=== PATIENT | male | born 1945 | race Caucasian/White ===

== ENCOUNTER 2020-08-18 07:16 | Outpatient (REF) | payer MEDICARE, SELFPAY ==
[2020-08-18 07:53] LABS: Basophils Percent Auto 0.5 % (0-2); Eosinophils Absolute Auto 0.5 X10*3/uL (0.0-0.4); Eosinophils Percent Auto 8.4 % (0-4); Hematocrit 38.4 % (42-52); Hemoglobin 12.8 g/dl (14.0-18.0); Imm Gran Abs Auto 0.04 X10*3/uL (0.00-0.03); Imm Gran Pct Auto 0.7 % (0.0-0.4); Lymphocytes Absolute Auto 1.9 X10*3/uL (1.2-4.9); Lymphocytes Percent Auto 31.9 % (20-40); Mean Corpuscular HGB Conc 33.3 g/dl (31.0-36.0); Mean Corpuscular Hemoglobin 29.9 pg (27.0-33.0); Mean Corpuscular Volume 89.7 fL (80-98); Mean Platelet Volume 10.2 fL (9.4-12.4); Monocytes Absolute Auto 0.4 X10*3/uL (0.1-1.2); Monocytes Percent Auto 6.1 % (2-11); Neutrophils Absolute Auto 3.2 X10*3/uL (2.0-8.3); Neutrophils Percent Auto 52.4 % (45-73); Platelet Count 246 X10*3/uL (160-400); Red Blood Count 4.28 X10*6/uL (4.60-5.80); Red Cell Distribution Width 12.7 % (11.0-16.0); White Blood Count 6.1 X10*3/uL (4.8-10.8)
[2020-08-18 07:54] LABS: MANUAL DIFF FLAG NO
[2020-08-18 08:49] LABS: Alanine Aminotransferase 18 U/L (0-40); Albumin Level 4.3 g/dL (3.5-5.0); Alkaline Phosphatase 84 U/L (39-117); Anion Gap 12 (12-20); Aspartate Amino Transferase 14 U/L (5-37); Bilirubin Total 0.7 mg/dL (0.0-1.0); Blood Urea Nitrogen 20 mg/dL (9-16); Calcium 8.9 mg/dL (8.4-10.2); Carbon Dioxide 28 mmol/L (22-29); Chloride 106 mmol/L (96-108); Cholesterol 129 mg/dL; Estimated Glomerular Filt Rate > 60; Glucose Fasting 133 mg/dL (60-99); HDL Cholesterol 40 mg/dL; LDL Cholesterol Calculated 73 mg/dl; Potassium 3.8 mmol/l (3.3-5.1); Sodium 142 mmol/L (135-145); Total Protein 6.9 g/dL (6.5-8.0); Triglycerides 84 mg/dL
[2020-08-18 08:56] LABS: Prostate Specific Antigen 5.75 ng/mL (<0.05-4.0)
[2020-08-18 08:58] LABS: Estimated Average Glucose 137 mg/dL; Hemoglobin A1C 151.6453 umol/L; Hemoglobin A1c % 6.4 %
[2020-08-18 09:11] LABS: Glucose Urine UA NEG (NEG); Leukocyte Esterase Urine NEG (NEG); Nitrite Urine NEG (NEG); PH 6.5 (5.0-8.0); Urine Blood NEG (NEG); Urine Ketones NEG (NEG); Urine Protein NEG (NEG-TRACE)
[2020-08-18 09:15] LABS: Color Urine YELLOW
[2020-08-18 09:16] LABS: Appearance Urine CLEAR
[2020-08-18 09:33] LABS: Creatinine Urine 114.06 mg/dL; Microalbum/Creatinine Ratio Ur 6.1 ug/mg cr
[2020-08-18 09:35] LABS: Reflex LDLD? No
== END 2020-08-18 07:17 | disposition home or self-care (01) ==
LOC: HO.LAB 07:16
PROVIDERS: Visit Provider Internal Medicine
DX: E78.00 Pure hypercholesterolemia, unspecified (principal); E11.9 Type 2 diabetes mellitus without complications; I10 Essential (primary) hypertension; N40.0 Benign prostatic hyperplasia without lower urinary tract symptoms; Z00.00 Encounter for general adult medical examination without abnormal findings
CPT/HCPCS: 36415; 80053; 80061; 81003; 82043; 83036; 84153; 85025

== ENCOUNTER 2021-02-17 10:20 | Outpatient (REF) | payer MEDICARE, SELFPAY ==
[2021-02-17 11:02] LABS: Estimated Average Glucose 151 mg/dL; Hemoglobin A1c % 6.9 %
[2021-02-17 11:15] LABS: Alanine Aminotransferase 18 U/L (0-40); Albumin Level 4.1 g/dL (3.5-5.0); Alkaline Phosphatase 91 U/L (39-117); Aspartate Amino Transferase 17 U/L (5-37); Bilirubin Direct 0.3 mg/dL (0.0-0.5); Bilirubin Total 0.9 mg/dL (0.0-1.0); Cholesterol 133 mg/dL; Glucose Fasting 130 mg/dL (60-99); HDL Cholesterol 38 mg/dL; LDL Cholesterol Calculated 77 mg/dl; Total Protein 6.9 g/dL (6.5-8.0); Triglycerides 93 mg/dL
[2021-02-17 11:30] LABS: Reflex LDLD? No
== END 2021-02-17 10:21 | disposition home or self-care (01) ==
LOC: HO.LNP 10:20
PROVIDERS: Visit Provider Internal Medicine
DX: E11.9 Type 2 diabetes mellitus without complications (principal); E78.00 Pure hypercholesterolemia, unspecified
CPT/HCPCS: 80061; 80076; 82947; 83036

== ENCOUNTER 2021-05-01 08:54 | Outpatient (REF) | payer MEDICARE, SELFPAY ==
--- NOTE | ~2021-05-01 | US_ITS ---
EXAMINATION: US RETROPERITONEAL COMPLETE (RENAL) CLINICAL INFORMATION: Complex renal cyst. COMPARISON: Renal ultrasound 04/29/2020 and 04/17/2019. TECHNIQUE: Real-time imaging of the kidneys and bladder. FINDINGS: RIGHT KIDNEY: 11.2 x 4.8 x 4.6 cm (SAG x AP x TRV). The kidney is normal in size, contour, and echogenicity. Renal cortical thickness is normal. No renal calculi or hydronephrosis. There is a cyst with septation lower pole measuring 3.8 x 2.4 x 2.4 cm. There are mildly dilated calyces. LEFT KIDNEY: 11.1 x 5.1 x 4.9 cm (SAG x AP x TRV). The kidney is normal in size, contour, and echogenicity. Renal cortical thickness is normal. No renal calculi or hydronephrosis. There is cyst with septation lower pole measuring 2.0 x 1.9 x 2.0 cm. A simple anechoic cyst seen in the midpole measuring 1.7 x 1.4 x 1.6 cm. BLADDER: Well distended and normal. Bilateral ureteral jets are demonstrated. Prevoid bladder volume is 286 mL. Postvoid bladder volume is 11.3 mL. There is a bladder diverticulum measuring 1.6 x 0.90 x 1.4 cm. ADDITIONAL FINDINGS: The prostate gland is enlarged with 38.1 mL volume. US/US retroperitoneal comp IMPRESSION: Bilateral renal complex cyst and a simple cyst midpole left kidney. No echogenic stones seen in either kidney. There is a mildly dilated left renal calyx. Tiny postvoid residual bladder volume. Small bladder diverticulum. Enlarged prostate with volume 38.1 mL.
== END 2021-05-01 08:55 | disposition home or self-care (01) ==
LOC: HO.HMGCX 08:54
PROVIDERS: PCP Internal Medicine; Visit Provider Internal Medicine
DX: N28.1 Cyst of kidney, acquired (principal)
CPT/HCPCS: 76770

== ENCOUNTER 2021-12-15 10:54 | Outpatient (REF) | payer MEDICARE, SELFPAY ==
[2021-12-15 10:57] LABS: MANUAL DIFF FLAG NO
[2021-12-15 11:20] LABS: Basophils Absolute Auto 0.1 X10*3/uL (0.0-0.2); Basophils Percent Auto 0.9 % (0-2); Eosinophils Absolute Auto 0.5 X10*3/uL (0.0-0.4); Eosinophils Percent Auto 7.9 % (0-4); Hematocrit 39.8 % (42.0-52.0); Imm Gran Abs Auto 0.02 X10*3/uL (0.00-0.03); Imm Gran Pct Auto 0.3 % (0.0-0.4); Lymphocytes Percent Auto 29.4 % (20-40); Mean Corpuscular HGB Conc 32.7 g/dl (31.0-36.0); Mean Corpuscular Volume 91.7 fL (80.0-98.0); Mean Platelet Volume 10.7 fL (9.4-12.4); Monocytes Absolute Auto 0.6 X10*3/uL (0.1-1.2); Monocytes Percent Auto 8.5 % (2-11); Neutrophils Absolute Auto 3.6 x10*3/uL (2.0-8.3); Platelet Count 276 X10*3/uL (160-400); Red Blood Count 4.34 X10*6/uL (4.60-5.80); Red Cell Distribution Width 12.9 % (11.0-16.0); White Blood Count 6.7 X10*3/uL (4.8-10.8)
[2021-12-15 11:38] LABS: Estimated Average Glucose 140 mg/dL; Hemoglobin A1c % 6.5 %
[2021-12-15 11:56] LABS: Alanine Aminotransferase 21 U/L (0-40); Albumin Level 4.1 g/dL (3.5-5.0); Alkaline Phosphatase 74 U/L (39-117); Anion Gap 13 (12-20); Aspartate Amino Transferase 20 U/L (5-37); Bilirubin Total 0.9 mg/dL (0.0-1.0); Blood Urea Nitrogen 22 mg/dL (9-16); Calcium 9.8 mg/dL (8.4-10.2); Carbon Dioxide 27 mmol/L (22-29); Chloride 106 mmol/L (96-108); Cholesterol 124 mg/dL; Estimated Glomerular Filt Rate 52; Glucose Fasting 121 mg/dL (60-99); HDL Cholesterol 36 mg/dL; LDL Cholesterol Calculated 69 mg/dl; Potassium 4.5 mmol/L (3.3-5.1); Sodium 141 mmol/L (135-145); Triglycerides 97 mg/dL
[2021-12-15 12:04] LABS: PSA,Total (Free>4and<10) 5.08 ng/mL (0.00-4.00)
[2021-12-15 12:23] LABS: Appearance Urine CLEAR; Color Urine YELLOW; Glucose Urine UA NEG (NEG); Leukocyte Esterase Urine NEG (NEG); Nitrite Urine NEG (NEG); Specific Gravity - Urine 1.015 (1.005-1.025); Urine Blood NEG (NEG); Urine Ketones NEG (NEG); Urine Protein NEG (NEG-TRACE)
[2021-12-15 12:33] LABS: Creatinine Urine 210.28 mg/dL; Microalbum/Creatinine Ratio Ur 5.2 ug/mg cr
[2021-12-16 11:27] LABS: Free Prostate Spec Ag 1.4 ng/mL; Percent Free Prostate Spec Ag 30 % (calc) (>25); Prostate Specific Ag Total 4.7 ng/mL (< OR = 4.0)
== END 2021-12-15 10:55 | disposition home or self-care (01) ==
LOC: HO.LNP 10:54
PROVIDERS: PCP Internal Medicine; Visit Provider Internal Medicine
DX: Z00.00 Encounter for general adult medical examination without abnormal findings (principal); Z12.5 Encounter for screening for malignant neoplasm of prostate; E11.9 Type 2 diabetes mellitus without complications; E78.00 Pure hypercholesterolemia, unspecified; N40.0 Benign prostatic hyperplasia without lower urinary tract symptoms; I10 Essential (primary) hypertension
CPT/HCPCS: 80053; 80061; 81003; 82043; 83036; 84153; 84154; 85025

== ENCOUNTER 2022-05-11 10:29 | Outpatient (REF) | payer MEDICARE, SELFPAY ==
--- NOTE | ~2022-05-11 | US_ITS ---
EXAMINATION: US RETROPERITONEAL LIMITED (RENAL ONLY) CLINICAL INFORMATION: Renal cysts. COMPARISON: Ultrasound kidneys and bladder 05/01/2021 and 04/29/2020. TECHNIQUE: Real-time imaging of the kidneys. FINDINGS: RIGHT KIDNEY: 11.7 x 5.11 x 4.4 cm (SAG x AP x TRV). The kidney is normal in size, contour, and echogenicity. Renal cortical thickness is normal. There is a 4.4 x 2.8 x 2.8 cm minimally complex cyst with single thin septation. This appears unchanged. No renal calculi or hydronephrosis. LEFT KIDNEY: 10.8 x 5.2 x 5.2 cm (SAG x AP x TRV). The kidney is normal in size, contour, and echogenicity. Renal cortical thickness is normal. There are 2 left renal cysts. There is a 3 x 2.5 x 2.9 cm minimally complex left lower pole cyst with single thin septation. There is a 1.8 x 1.6 x 2.2 cm left upper pole simple cyst. These appear unchanged. No renal calculi or hydronephrosis. US/US renal BI IMPRESSION: Bilateral renal cysts similar to previous exam.
== END 2022-05-11 10:30 | disposition home or self-care (01) ==
LOC: HO.HMGCX 10:29
PROVIDERS: PCP Internal Medicine; Visit Provider Internal Medicine
DX: N28.1 Cyst of kidney, acquired (principal)
CPT/HCPCS: 76775

== ENCOUNTER 2022-06-22 10:56 | Outpatient (REF) | payer MEDICARE, SELFPAY ==
[2022-06-22 12:30] LABS: Estimated Average Glucose 134 mg/dL; Hemoglobin A1C 150.0247 umol/L; Hemoglobin A1c % 6.3 %
[2022-06-22 12:50] LABS: Alanine Aminotransferase 16 U/L (0-40); Albumin Level 4.1 g/dL (3.5-5.0); Alkaline Phosphatase 78 U/L (39-117); Aspartate Amino Transferase 16 U/L (5-37); Bilirubin Direct 0.4 mg/dL (0.0-0.5); Bilirubin Total 0.8 mg/dL (0.0-1.0); Cholesterol 113 mg/dL; Glucose Fasting 107 mg/dL (60-99); HDL Cholesterol 35 mg/dL; LDL Cholesterol Calculated 64 mg/dl; Total Protein 6.7 g/dL (6.5-8.0); Triglycerides 70 mg/dL
[2022-06-22 13:46] LABS: Reflex LDLD? No
== END 2022-06-22 10:57 | disposition home or self-care (01) ==
LOC: HO.LNP 10:56
PROVIDERS: Visit Provider Internal Medicine
DX: E11.9 Type 2 diabetes mellitus without complications (principal); E78.00 Pure hypercholesterolemia, unspecified
CPT/HCPCS: 80061; 80076; 82947; 83036

== ENCOUNTER 2022-12-21 10:46 | Outpatient (REF) | payer MEDICARE, SELFPAY ==
[2022-12-21 10:52] LABS: MANUAL DIFF FLAG NO
[2022-12-21 11:07] LABS: Basophils Absolute Auto 0.1 X10*3/uL (0.0-0.2); Basophils Percent Auto 0.7 % (0-2); Eosinophils Absolute Auto 0.3 X10*3/uL (0.0-0.4); Eosinophils Percent Auto 4.3 % (0-4); Hematocrit 38.8 % (42.0-52.0); Hemoglobin 12.8 g/dl (14.0-18.0); Imm Gran Abs Auto 0.02 X10*3/uL (0.00-0.03); Imm Gran Pct Auto 0.3 % (0.0-0.4); Lymphocytes Absolute Auto 1.9 X10*3/uL (1.2-4.9); Lymphocytes Percent Auto 28.4 % (20-40); Mean Corpuscular Volume 91.1 fL (80.0-98.0); Mean Platelet Volume 10.7 fL (9.4-12.4); Monocytes Absolute Auto 0.5 X10*3/uL (0.1-1.2); Monocytes Percent Auto 7.3 % (2-11); Platelet Count 269 X10*3/uL (160-400); Red Blood Count 4.26 X10*6/uL (4.60-5.80); Red Cell Distribution Width 13.4 % (11.0-16.0); White Blood Count 6.8 X10*3/uL (4.8-10.8)
[2022-12-21 11:09] LABS: Appearance Urine Clear; Color Urine Yellow; Glucose Urine UA Negative (Negative); Leukocyte Esterase Urine Negative (Negative); Nitrite Urine Negative (Negative); Urine Blood Negative (Negative); Urine Ketones Negative (Negative); Urine Protein Trace mg/dL (Neg-Trace)
[2022-12-21 11:15] LABS: Bacteria Urine None Seen (None Seen); Hyaline Casts Urine 0-2 /LPF (0-2); RBC Urine 0-2 /HPF (0-2); Squamous Epithelial Cell Urine 0-2 /HPF (0-2); WBC Urine 0-5 /HPF (0-5)
[2022-12-21 11:20] LABS: Estimated Average Glucose 140 mg/dL; Hemoglobin A1c % 6.5 %
[2022-12-21 12:20] LABS: Alanine Aminotransferase 15 U/L (0-40); Albumin Level 4.2 g/dL (3.5-5.0); Alkaline Phosphatase 67 U/L (39-117); Anion Gap 10 (12-20); Aspartate Amino Transferase 13 U/L (5-37); Blood Urea Nitrogen 23 mg/dL (9-16); Calcium 9.3 mg/dL (8.4-10.2); Carbon Dioxide 27 mmol/L (22-29); Chloride 107 mmol/L (96-108); Cholesterol 118 mg/dL; Estimated Glomerular Filt Rate > 60; Glucose Fasting 123 mg/dL (60-99); HDL Cholesterol 36 mg/dL; LDL Cholesterol Calculated 65 mg/dl; Potassium 4.1 mmol/L (3.3-5.1); Sodium 140 mmol/L (135-145); Total Protein 6.6 g/dL (6.5-8.0); Triglycerides 86 mg/dL
[2022-12-21 12:38] LABS: PSA,Total (Free>4and<10) 4.52 ng/mL (0.00-4.00)
[2022-12-21 12:40] LABS: Creatinine Urine 207.44 mg/dL; Microalbum/Creatinine Ratio Ur 8.6 ug/mg cr
[2022-12-23 09:59] LABS: Free Prostate Spec Ag 1.2 ng/mL; Percent Free Prostate Spec Ag 29 % (calc) (>25); Prostate Specific Ag Total 4.2 ng/mL (< OR = 4.0)
== END 2022-12-21 10:47 | disposition home or self-care (01) ==
LOC: HO.LNP 10:46
PROVIDERS: Visit Provider Internal Medicine
DX: Z00.00 Encounter for general adult medical examination without abnormal findings (principal); Z12.5 Encounter for screening for malignant neoplasm of prostate; E11.9 Type 2 diabetes mellitus without complications; I10 Essential (primary) hypertension; N40.0 Benign prostatic hyperplasia without lower urinary tract symptoms; E78.00 Pure hypercholesterolemia, unspecified
CPT/HCPCS: 80053; 80061; 81001; 82043; 83036; 84153; 84154; 85025

== ENCOUNTER 2023-06-27 10:59 | Outpatient (REF) | payer MEDICARE, SELFPAY ==
[2023-06-27 11:40] LABS: Estimated Average Glucose 137 mg/dL; Hemoglobin A1c % 6.4 % (<6.0)
[2023-06-27 11:46] LABS: Alanine Aminotransferase 16 U/L (0-40); Albumin Level 4.2 g/dL (3.5-5.0); Alkaline Phosphatase 65 U/L (39-117); Aspartate Amino Transferase 17 U/L (5-37); Bilirubin Direct 0.3 mg/dL (0.0-0.5); Bilirubin Total 0.6 mg/dL (0.0-1.0); Glucose Fasting 146 mg/dL (60-99)
[2023-06-27 11:50] LABS: Cholesterol 116 mg/dL (<200); HDL Cholesterol 42 mg/dL (>40); LDL Cholesterol Calculated 61 mg/dL (<100); Triglycerides 67 mg/dL (<150)
[2023-06-27 12:10] LABS: Reflex LDLD? No
== END 2023-06-27 11:00 | disposition home or self-care (01) ==
LOC: HO.LNP 10:59
PROVIDERS: Visit Provider Internal Medicine
DX: E11.9 Type 2 diabetes mellitus without complications (principal); E78.00 Pure hypercholesterolemia, unspecified
CPT/HCPCS: 80061; 80076; 82947; 83036

== ENCOUNTER 2023-12-13 12:56 | Outpatient (REF) | payer MEDICARE, SELFPAY ==
--- NOTE | ~2023-12-13 | US_ITS ---
EXAMINATION: US RETROPERITONEAL LIMITED (RENAL ONLY) CLINICAL INFORMATION: Renal cysts. . COMPARISON: Renal ultrasound 05/11/2022. Ultrasound kidneys and bladder 05/01/2021. TECHNIQUE: Real-time imaging of the kidneys. FINDINGS: RIGHT KIDNEY: 10.8 x 5.0 x 5.0 cm (SAG x AP x TRV). The kidney is normal in size, contour, and echogenicity. Renal cortical thickness is normal. No renal calculi or hydronephrosis. Thinly septated cyst in the lower pole measures 5.4 cm. Simple cyst in the lower pole measures 2.3 cm. No imaging follow-up is recommended. LEFT KIDNEY: 10.5 x 4.9 x 5.5 cm (SAG x AP x TRV). The kidney is normal in size, contour, and echogenicity. Renal cortical thickness is normal. No renal calculi or hydronephrosis. Thinly septated cyst in the lower pole measures 3.2 cm. Simple cyst in the mid kidney measures 1.8 cm. No imaging follow-up is recommended. US/US renal BI IMPRESSION: Benign appearing mildly complex and simple cysts bilateral kidneys. No imaging follow-up is recommended.
== END 2023-12-13 12:57 | disposition home or self-care (01) ==
LOC: HO.HMGCX 12:56
PROVIDERS: PCP Internal Medicine; Visit Provider Internal Medicine
DX: N28.1 Cyst of kidney, acquired (principal)
CPT/HCPCS: 76775

== ENCOUNTER 2023-12-27 12:20 | Outpatient (REF) | payer MEDICARE, SELFPAY ==
[2023-12-27 12:36] LABS: MANUAL DIFF FLAG NO
[2023-12-27 12:46] LABS: Basophils Absolute Auto 0.1 X10*3/uL (0.0-0.2); Basophils Percent Auto 0.8 % (0-2); Eosinophils Absolute Auto 0.3 X10*3/uL (0.0-0.4); Eosinophils Percent Auto 4.3 % (0-4); Hematocrit 39.2 % (42.0-52.0); Hemoglobin 12.8 g/dl (14.0-18.0); Imm Gran Abs Auto 0.04 X10*3/uL (0.00-0.03); Imm Gran Pct Auto 0.5 % (0.0-0.4); Lymphocytes Absolute Auto 1.8 X10*3/uL (1.2-4.9); Lymphocytes Percent Auto 25.1 % (20-40); Mean Corpuscular HGB Conc 32.7 g/dl (31.0-36.0); Mean Corpuscular Hemoglobin 29.7 pg (27.0-33.0); Mean Platelet Volume 10.1 fL (9.4-12.4); Monocytes Absolute Auto 0.6 X10*3/uL (0.1-1.2); Monocytes Percent Auto 7.5 % (2-11); Neutrophils Absolute Auto 4.5 x10*3/uL (2.0-8.3); Neutrophils Percent Auto 61.8 % (45-73); Platelet Count 286 X10*3/uL (160-400); Red Blood Count 4.31 X10*6/uL (4.60-5.80); Red Cell Distribution Width 13.4 % (11.0-16.0); White Blood Count 7.3 X10*3/uL (4.8-10.8)
[2023-12-27 13:00] LABS: Estimated Average Glucose 143 mg/dL; Hemoglobin A1c % 6.6 % (<6.0)
[2023-12-27 13:14] LABS: Appearance Urine Clear; Color Urine Yellow; Glucose Urine UA Negative (Negative); Leukocyte Esterase Urine Negative (Negative); Nitrite Urine Negative (Negative); PH 7.5 (5.0-9.0); Specific Gravity - Urine 1.015 (1.005-1.025); Urine Blood Negative (Negative); Urine Ketones Negative (Negative); Urine Protein Negative (Neg-Trace)
[2023-12-27 13:19] LABS: Alanine Aminotransferase 14 U/L (0-40); Albumin Level 3.9 g/dL (3.5-5.0); Alkaline Phosphatase 64 U/L (39-117); Anion Gap 13 (12-20); Aspartate Amino Transferase 16 U/L (5-37); Bilirubin Total 0.7 mg/dL (0.0-1.0); Blood Urea Nitrogen 19 mg/dL (9-16); Calcium 9.5 mg/dL (8.4-10.2); Carbon Dioxide 28 mmol/L (22-29); Chloride 106 mmol/L (96-108); Cholesterol 114 mg/dL (<200); Estimated Glomerular Filt Rate > 60; Glucose Fasting 123 mg/dL (60-99); HDL Cholesterol 40 mg/dL (>40); LDL Cholesterol Calculated 61 mg/dL (<100); Potassium 4.4 mmol/L (3.3-5.1); Sodium 143 mmol/L (135-145); Total Protein 6.5 g/dL (6.5-8.0); Triglycerides 65 mg/dL (<150)
[2023-12-27 13:39] LABS: PSA,Total (Free>4and<10) 2.01 ng/mL (0.00-4.00)
[2023-12-27 14:19] LABS: Microalbum/Creatinine Ratio Ur 3.8 ug/mg cr (<30)
== END 2023-12-27 12:21 | disposition home or self-care (01) ==
LOC: HO.LNP 12:20
PROVIDERS: Visit Provider Internal Medicine
DX: Z00.00 Encounter for general adult medical examination without abnormal findings (principal); E11.9 Type 2 diabetes mellitus without complications; I10 Essential (primary) hypertension; N40.0 Benign prostatic hyperplasia without lower urinary tract symptoms; E78.00 Pure hypercholesterolemia, unspecified; Z12.5 Encounter for screening for malignant neoplasm of prostate
CPT/HCPCS: 80053; 80061; 81003; 82043; 82570; 83036; 84153; 85025

== ENCOUNTER → 2024-01-16 13:47 | Outpatient (REF) | payer MEDICARE, SELFPAY ==
--- NOTE | 2024-01-16 | HM_ITS ---
Conclusion: 1. Patient was monitored for total period of 6 days and 23 hours 2. Baseline was normal sinus rhythm with average heart of 74 beats per minute 3. No significant pauses noted 4. Rare PACs and PVCs noted 5. Seventeen total SVT events noted with fastest at 198 beats per minute and longest at 16 beats 6. No patient reported events MTDD
== END ==
LOC: HO.CARD 13:47
PROVIDERS: Visit Provider Internal Medicine
DX: R00.2 Palpitations (principal)
CPT/HCPCS: 93242; 93270

== ENCOUNTER → 2024-01-16 13:51 | Outpatient (BNV) | payer MEDICARE, SELFPAY | PROVIDERS: Visit Provider Internal Medicine Cardiovascular Disease | DX: I47.10 Supraventricular tachycardia, unspecified (principal) | CPT/HCPCS: 93244 ==

== ENCOUNTER 2024-05-31 10:43 | Outpatient (REF) | payer MEDICARE, SELFPAY ==
[2024-05-31 11:56] LABS: Estimated Average Glucose 140 mg/dL; Hemoglobin A1C 156.6499 umol/L; Hemoglobin A1c % 6.5 % (<6.0); Total Hemoglobin (HGBA1C) 3280.6473 umol/L
[2024-05-31 12:01] LABS: Alanine Aminotransferase 15 U/L (0-40); Alkaline Phosphatase 68 U/L (39-117); Aspartate Amino Transferase 16 U/L (5-37); Bilirubin Direct 0.3 mg/dL (0.0-0.5); Bilirubin Total 0.9 mg/dL (0.0-1.0); Cholesterol 112 mg/dL (<200); Glucose Fasting 112 mg/dL (60-99); HDL Cholesterol 42 mg/dL (>40); LDL Cholesterol Calculated 56 mg/dL (<100); Total Protein 6.8 g/dL (6.5-8.0); Triglycerides 72 mg/dL (<150)
[2024-05-31 12:08] LABS: Reflex LDLD? No
== END 2024-05-31 10:44 | disposition home or self-care (01) ==
LOC: HO.LNP 10:43
PROVIDERS: Visit Provider Internal Medicine
DX: E11.9 Type 2 diabetes mellitus without complications (principal); E78.00 Pure hypercholesterolemia, unspecified
CPT/HCPCS: 80061; 80076; 82947; 83036

== ENCOUNTER 2024-06-07 13:16 | Outpatient (REF) | payer MEDICARE, SELFPAY ==
[2024-06-07 14:04] LABS: TSH reflex Free T4 1.33 uIU/mL (0.32-4.0)
== END 2024-06-07 13:17 | disposition home or self-care (01) ==
LOC: HO.LNP 13:16
PROVIDERS: Visit Provider Internal Medicine
DX: R68.89 Other general symptoms and signs (principal)
CPT/HCPCS: 84443

== ENCOUNTER 2025-01-03 08:00 | Outpatient (REF) | payer MEDICARE, SELFPAY ==
[2025-01-03 11:40] LABS: MANUAL DIFF FLAG NO
[2025-01-03 11:47] LABS: Appearance Urine Clear; Basophils Absolute Auto 0.1 X10*3/uL (0.0-0.2); Basophils Percent Auto 0.8 % (0-2); Color Urine Yellow; Eosinophils Absolute Auto 0.2 X10*3/uL (0.0-0.4); Glucose Urine UA Negative (Negative); Hematocrit 36.6 % (42.0-52.0); Hemoglobin 12.4 g/dl (14.0-18.0); Imm Gran Abs Auto 0.02 X10*3/uL (0.00-0.03); Imm Gran Pct Auto 0.3 % (0.0-0.4); Leukocyte Esterase Urine Negative (Negative); Lymphocytes Absolute Auto 1.7 X10*3/uL (1.2-4.9); Lymphocytes Percent Auto 27.9 % (20-40); Mean Corpuscular HGB Conc 33.9 g/dl (31.0-36.0); Mean Corpuscular Hemoglobin 30.2 pg (27.0-33.0); Mean Corpuscular Volume 89.1 fL (80.0-98.0); Mean Platelet Volume 10.1 fL (9.4-12.4); Monocytes Absolute Auto 0.5 X10*3/uL (0.1-1.2); Monocytes Percent Auto 7.9 % (2-11); Neutrophils Absolute Auto 3.6 x10*3/uL (2.0-8.3); Neutrophils Percent Auto 60.1 % (45-73); Nitrite Urine Negative (Negative); Platelet Count 276 X10*3/uL (160-400); Red Blood Count 4.11 X10*6/uL (4.60-5.80); Red Cell Distribution Width 13.2 % (11.0-16.0); Specific Gravity - Urine 1.025 (1.005-1.025); Urine Blood Negative (Negative); Urine Ketones Trace mg/dL (Negative); Urine Protein Negative (Neg-Trace); White Blood Count 5.9 X10*3/uL (4.8-10.8)
[2025-01-03 11:50] LABS: Bacteria Urine None Seen (None Seen); Hyaline Casts Urine 0-2 /LPF (0-2); RBC Urine 0-2 /HPF (0-2); Squamous Epithelial Cell Urine 0-2 /HPF (0-2); WBC Urine 0-5 /HPF (0-5)
[2025-01-03 11:59] LABS: Estimated Average Glucose 143 mg/dL; Hemoglobin A1C 159.4641 umol/L; Hemoglobin A1c % 6.6 % (<6.0); Total Hemoglobin (HGBA1C) 3252.7563 umol/L
--- OUTSIDE RECORDS SUMMARY | 2025-01-03 12:12 | XMS_ITS | Patient Health Record ---
Author Organization John Dejesus MD Address [address] [place], [place] [id number] Care Team Providers Care Inspector Integrated Circuits Name Role Phone John Dejesus Primary Care Provider Allergies No Known Allergies Results Component Value Reference Range Notes Complete Blood Count Auto Di ff (Not yet reviewed by provider) Interpretation: Performing Lab:[facility], [address] [place] [phone] Notes/Report: White Blood Count 5.9 4.8-10.8 X10*3/uL [...] X10*3/uL NRBC Abs Auto 0.000 0.0-0.012 X10*3/uL Hemoglobin A1c (Not yet revi ewed by provider) Interpretation: Performing Lab:[address] [phone] Notes/Report: Hemoglobin A1c % 6.6 <6.0 % [...] average glucose, using the formula of the B4V-Uafgrow Average Glucose study (ADAG), Diabetes Care, Vol.31,#8, 2007 UA ClnCatch+Micro w/rflx Cul t (Not yet reviewed by provider) Interpretation: Performing Lab:[address] [phone] Notes/Report: Urine, Clean Catch Color Urine Yellow Appearance Urine Clear PH 6.0 5.0-9.0 Glucose Urine UA Negative Negative mg/dL Urine Blood Negative Negative Specific Jefferson - Urine 1.025 1.005-1.025 Urine Protein Negative Neg-Trace mg/dL Urine Ketones Trace Negative mg/dL Nitrite Urine Negative Negative Leukocyte Esterase Urine Negative Negative RBC Urine 0-2 0-2 /HPF WBC Urine 0-5 0-5 /HPF Squamous Epithelial Cell Urine 0-2 0-2 /HPF Bacteria Urine None Seen None Seen Hyaline Casts Urine 0-2 0-2 /LPF Occult Blood, Stool, Guaiac Reviewed date:01/05/2024 01:20:19 PM Interpretation:Negative Performing Lab: Notes/Report: Negative Occult Blood, Stool, Guaiac Neg Electrocardiogram (EKG) Reviewed date:01/05/2024 11:28:20 AM Interpretation: Performing Lab: Notes/Report: Glucose, finger stick Reviewed date:03/06/2024 10:03:19 AM Interpretation: Performing Lab: Notes/Report: Value 266 Liver Panel Reviewed date:05/31/2024 05:20:25 PM Interpretation: Performing Lab:[facility], [address] [place] [phone] Notes/Report: Bilirubin Total 0.9 0.0-1.0 mg/dL Bilirubin Direct 0.3 0.0-0.5 mg/dL Aspartate Amino Transferase 16 5-37 U/L Alanine Aminotransferase 15 0-40 U/L Total Protein 6.8 6.5-8.0 g/dL Albumin Level 4.0 3.5-5.0 g/dL Alkaline Phosphatase 68 39-117 U/L Glucose Fasting Reviewed date:05/31/2024 05:20:14 PM Interpretation: Performing Lab:[address] [phone] Notes/Report: Glucose Fasting 112 60-99 mg/dL A fasting glucose from 100-125 mg/dl is considered impaired (pre-diabetes). Lipid Panel with Reflex Reviewed date:05/31/2024 09:37:16 PM Interpretation: Performing Lab:[address] [phone] Notes/Report: Triglycerides 72 <150 mg/dL Desirable Triglyceride: [...] A1c Reviewed date:05/31/2024 09:21:34 PM Interpretation: Performing Lab:[facility], [address] [place] [phone] Notes/Report: Hemoglobin A1c % 6.5 <6.0 % [...] average glucose, using the formula of the L5A-Dzuyeyb Average Glucose study (ADAG), Diabetes Care, Vol.31,#8, Mar. 2007 TSH reflex Free T4 Reviewed date:06/07/2024 05:24:12 PM Interpretation: Performing Lab:[facility], [address] [place] [phone] Notes/Report: TSH reflex Free T4 1.33 0.32-4.0 uIU/mL Adrianna Sy Reviewed date:05/31/2024 05:17:39 PM Interpretation: Performing Lab:[facility], [address] [place] [phone] Notes/Report: Adrianna Sy See Note Specimen held untested for 24 hours; Call to request Chemistry testing. Adrianna Sy Reviewed date:06/07/2024 05:21:51 PM Interpretation: Performing Lab:[facility], [address] [place] [phone] Notes/Report: Adrianna Sy See Note Specimen held untested for 24 hours; Call to request Chemistry testing. Reason For Referral No Information Medications Medication SIG (Take, Route, Frequency, Duration) Notes Start Date End Date Status Atorvastatin Calcium 40 MG Take 1 tablet by mouth once daily for 90 Active Aspirin 81 MG 1 tablet Orally Once a day Active Valsartan-hydroCHLOROthia zide 320-12.5 MG Take 1 tablet by mouth once daily for 90 Active Transderm-Scop (1.5 MG) 1 MG/3DAYS 1 patch to skin as needed Transdermal every 3 days for 10 days 01/20/2017 Not-Taking metFORMIN HCl 1000 MG TAKE 1 TABLET BY M OUTH TWICE DAILY Active Metoprolol Succinate ER 100 MG Take 1 tablet by mouth once daily Active amLODIPine Besylate 10 MG Take 1 tablet by mouth once daily for 90 Active Tamsulosin HCl 0.4 MG TAKE 1 CAPSULE BY MOUTH TWICE DAILY 30 MINUTES AFTER THE SAME MEALS for 90 Active Immunizations Vaccine Route Administration Date Status Comme nts Shingles IM Intramuscular 06/01/2011 Administered Flu Vaccine IM Intramuscular 06/01/2011 Administered Flu Vaccine IM Intramuscular 05/29/2012 Administered PPSV23 (Pnemovax) Unknown 08/31/2012 Administered Flu Vaccine IM Intramuscular 06/12/2013 Administered Prevnar 13 IM Intramuscular 12/06/2013 Administered Flu Vaccine IM Intramuscular 06/04/2014 Administered zFluzone Quadrivalent IM Intramuscular 06/24/2015 Administered Fluarix Quadrivalent IM Intramuscular 05/04/2016 Administe red Fluarix Quadrivalent Unknown 06/10/2017 Administered [place] TDaP IM Intramuscular 08/29/2017 Administered pt was given the vaccine at [facility] in [place]. PPSV23 (Pnemovax) IM Intramuscular 02/09/2018 Administered Fluarix Quadrivalent IM Intramuscular 05/11/2018 Administe red Fluarix Quadrivalent IM Intramuscular 05/15/2019 Administe red Fluarix Quadrivalent IM Intramuscular 05/15/2020 Administe red Influenza High Dose IM Intramuscular 05/22/2021 Administer ed SARS-COV-2 Moderna Unknown 12/09/2020 Administered SARS-COV-2 Moderna Unknown 01/06/2021 Administered SARS-COV-2 Moderna Unknown 10/20/2021 Administered Influenza High Dose Unknown 05/22/2021 Administered Influenza High Dose IM Intramuscular 06/01/2022 Administer ed Influenza High Dose IM Intramuscular 05/12/2023 Administer ed Influenza High Dose IM Intramuscular 04/24/2024 Administer ed Social History Tobacco Use: Social History Observation [...] ast year? No Points 0 Interpretation Negative Problems Problem Type SNOMED Code ICD Code Onset Dates Problem Status W/U Status Risk Notes Problem 95106340 Prostatism (N40.0) Active confirmed Problem 434682553 Reflux esophagit is (K21.00) Active confirmed Problem Constipation (K59.00) Active confirmed Problem 6727386 Primary insomnia (F51.01) Active confirmed Problem 888954442 Gastroesophageal reflux disease without esophagitis (K21.9) Active confirmed Problem 02036671 Essential hypert ension (I10) Active confirmed Problem 19212733 Type 2 diabetes mellitus without complication (E11.9) Active confirmed Problem 669477315 Low HDL (under 4 0) (E78.6) Active confirmed Problem 729037029 Mild intermitten t asthma with acute exacerbation (J45.21) Active confirmed Problem 180503553 Cervical disc di sease (M50.90) Active confirmed Problem 81645378 Restless leg (G25.81) Active confirmed Problem 652079956 Angina pectoris (I20.9) Active confirmed Problem 25106100 Sciatica of left side (M54.32) Active confirmed Problem 235761532 Renal cysts, acq uired, bilateral (N28.1) Active confirmed Problem 36745260 Type 2 diabetes mellitus with mild nonproliferative diabetic retinopathy without macular edema, 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) Active confirmed Problem 209640128 Pure hypercholesterolemia (E78.00) Active confirmed Problem 2175491867431383 Arthritis of le ft hip (M16.12) Active confirmed Vital Signs Blood pressure diastolic 56 mm Hg 06/07/2024 Height 64 in 06/07/2024 Blood pressure systolic 122 mm Hg 06/07/2024 Weight 168 lbs 06/07/2024 BMI 28.83 kg/m2 06/07/2024 Encounters Encounter Location Date Provider Diagnosis John Dejesus MD [address] [place] [address] Drive [address] [place] [id number] 04/24/2024 John Dejesus Encounter for immuni zation Z23 John Dejesus MD [address] [id number] 01/03/2025 John Dejesus Blood tests for rout ine general physical examination Z00.00 ; Type 2 diabetes mellitus without complication E11.9 ; Prostatism N40.0 ; Essential hypertension I10 and Pure hypercholesterolemia E78.00 John Dejesus MD [address] [place] [id number] 01/05/2024 John Dejesus Type 2 diabetes iam itus without complication E11.9 ; Annual physical exam Z00.00 ; Palpitations R00.2 ; Guaiac positive stools R19.5 ; Essential hypertension I10 ; Prostatism N40.0 and Pure hypercholesterolemia E78.00 John Dejesus MD [address] [id number] 03/06/2024 John Dejesus Type 2 diabetes iam itus without complication E11.9 John Dejesus MD [address] [place] [id number] 05/31/2024 John Dejesus Type 2 diabetes iam itus without complication E11.9 and Pure hypercholesterolemia E78.00 John Dejesus MD [address] [id number] 06/07/2024 John Dejesus Sensation of feeling cold R68.89 ; Prostatism N40.0 ; Type 2 diabetes mellitus with mild nonproliferative diabetic retinopathy without macular edema, bilateral E11.3293 ; Angina pectoris I20.9 ; Pure hypercholesterolemia E78.00 and Essential hypertension I10 John Dejesus MD [address] [place] [id number] 01/16/2024 John Dejesus Heart palpitations R 00.2 Assessments Encounter Date Diagnosis (ICD Code) Assessment Notes Treatment Notes Treatment Clinical Notes Section Notes 04/24/2024 Encounter for immunization (ICD-10 - Z23) 01/03/[address] ine general physical examination (ICD-10 - Z00.00) 01/05/2024 Type 2 diabetes iam itus without complication (ICD-10 - E11.9) stable, will continue current regiment 01/05/2024 Annual physical exam (ICD-10 - Z00.00) labs reviewed and discussed with patient 03/06/2024 Type 2 diabetes iam itus without complication (ICD-10 - E11.9) went to [place] this weekend and ate a lot of sweets. will continue current regiment and will continue to monitor 05/31/2024 Type 2 diabetes iam itus without complication (ICD-10 - E11.9) 05/31/2024 Pure hypercholesterolemia (ICD-10 - E78.00) 06/07/2024 Sensation of feeling cold (ICD-10 - R68.89) 06/07/2024 Prostatism (ICD-10 - N40.0) need notes from urology this month, RECORD REQUESTED FROM UROLOGY 01/16/2024 Heart palpitations (ICD-10 - R00.2) 01/03/2025 Type 2 diabetes iam itus without complication (ICD-10 - E11.9) 01/05/2024 Palpitations (ICD-10 - R00.2) 06/07/2024 Type 2 diabetes iam itus with mild nonproliferative diabetic retinopathy without macular edema, bilateral (ICD-10 - E11.3293) well controlled with good a1c, will continue current regiment 01/03/2025 Prostatism (ICD-10 - N40.0) 01/05/2024 Guaiac positive stoo ls (ICD-10 - R19.5) will send with 3 cards and recheck 06/07/2024 Angina pectoris (ICD -10 - I20.9) well controlled 01/03/2025 Essential hypertensi on (ICD-10 - I10) 01/05/2024 Essential hypertensi on (ICD-10 - I10) stable, will continue current regiment 06/07/2024 Pure hypercholesterolemia (ICD-10 - E78.00) stable, at goal, will contiue current regiment 01/03/2025 Pure hypercholesterolemia (ICD-10 - E78.00) 01/05/2024 Prostatism (ICD-10 - N40.0) stabe, will continue current regiment 06/07/2024 Essential hypertensi on (ICD-10 - I10) stable, will continue current regiment 01/05/2024 Pure hypercholesterolemia (ICD-10 - E78.00) doing well, will continue current regiment Plan Of Treatment Pending Test Test Name Order Date Electrocardiogram (EKG) 08/17/2018 Electrocardiogram (EKG) 08/23/2019 Electrocardiogram (EKG) 07/15/2016 XR GI SERIES 08/02/2017 Diabetic Eye Exam 07/25/2015 Complete Blood Count Auto Diff 5 Comprehensive [place]. Panel Fast 5 Lipid Panel 01/03/2025 PSA,Total (Free>4and<10) 01/03/2025 Microalbumin, Random 01/03/2025 ECG holter monitor 48 hour 01/16/2024 ECG 30 day event monitor 01/05/2024 US renal BI 05/08/2021 US renal BI 04/17/2021 Hemoglobin A1c 01/03/2025 UA ClnCatch+Micro w/rflx Cult 01/03/2025 Future Test Test Name Order Date RENAL US WITH BLADDER 05/05/2021 US renal BI 12/27/2022 Next Appt Details Provider Name:John Cain ier, 01/10/2025 09:30:00 AM, [address] [place] [address], [address], [place], [place], [phone], Insurance Providers Payer Name Payer Address Payer Phone Subscriber Number Group Number Insured Name Patient Relationship to Insured Coverage Start Date Coverage End Date [employer] [address] [address] [place] [address] [id number] Bobby Chapman Self - patient is the insured Medical (General) History Medical History History ICD Code COLONOSCOPY [address] Avila's consult note in 04/2012; colonoscopy w/Dr. Avila 02/10/17 (no further testing needed per Dr. Avila)
--- OUTSIDE RECORDS SUMMARY | 2025-01-03 12:12 | XMS_ITS ---
Author Organization John Dejesus MD Address [address] [place] [id number] Care Team Providers Care Car Installations Supervisor Name Role Phone John Dejesus Primary Care Provider Allergies No Known Allergies Results Component Value Reference Range Notes TSH reflex Free T4 Reviewed date:06/07/2024 05:24:12 PM Interpretation: Performing Lab:[facility], [address] [place] [phone] Notes/Report: TSH reflex Free T4 1.33 0.32-4.0 [...] Location Date Provider Diagnosis John Dejesus MD [address] [place] [address] [address] [place], [place] [phone] 06/07/2024 John Dejesus Sensation of feeling cold [...] Notes Assessment Notes Prostatism need notes from [facility] l[facility] this month, RECORD REQUESTED FROM UROLOGY Type 2 diabetes mellitus 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, bilateral well controlled with good a1c, will continue current regiment Angina pectoris well controlled Pure hypercholesterolemia stable, at goa l, will contiue current regiment Essential hypertension stable, will cont inue current regiment Next Appt Details Provider Name:John Cain ier, 01/10/2025 09:30:00 AM, [address] [place] [address], [address], [place], [place], [phone], Progress Notes * MIHAELABobbyDOB:1945 (78 yo M)Acc No.[id number]:06/07/2024 Progress Notes Patient:?Jaziel Chapmandy Provider:?John Dejesus MD :1945???Age:78 Y???Sex:Male Kd e:06/07/2024 Address:[address] [place], [place] [phone] Subjective: * Chief Complaints: * ???3 month DM * HPI: ???Symptom(s):? patient is a 78 yo male her for 3 month follow up visit, complaining of feeling cold all the time./ frequent urination at night. psa was in the 4 range. * ROS:?General/Constitutional:?Denies?Chills.?Denies?Fatigue.?Denies?Fever.?Denies?Headache.?ENT:?Patient denies?decreased sense of smell , any loss of taste , sore throat.?Denies?Sore throat.?Respiratory:?Denies?Cough.?Denies?Shortness of breath at rest.?Denies?Shortness of breath with exertion.?Gastrointestinal:?Denies?Diarrhea.?Denies?Nausea.?Musculoskeletal:?Patient denies?muscle aches.?Peripheral Vascular:?Patient denies?red and blue toes.? * Medical History:? * Surgical History:? * Hospitalization/Major Diagno stic Procedure:? * Medications:?TakingAspirin 8 1 MG Tablet Delayed Release 1 tablet Orally [...] reviewed and reconciled with the patient * Allergies:?N.K.D.A.yes[Aller gies Verified] Objective: * Vitals:?Ht: 64, Wt: 168, BMI :28.83, BP:122/56, Wt-k.2. * ???Past Orders: ???Lab:Glucose Fasting (Orde r Date - 05/31/2024) (Collection Date - 05/31/2024) ? Value Reference Range ?Glucose Fasting 112 H 60-9 9 - mg/dL ???Lab:Lipid Panel with Refl ex (Order Date - 05/31/2024) (Collection Date - 05/31/2024) ? Value Reference Range ?Triglycerides 72 <150 - mg/dL ?Cholesterol 112 <200 - m g/dL ?LDL Cholesterol Calculated 56 <100 - mg/dL ?HDL Cholesterol 42 >40 - mg/dL ???Lab:Hemoglobin A1c (Order 05/31/2024) (Collection Date - 05/31/2024) ? Value Reference Range ?Hemoglobin A1c % 6.5 H <6. 0 - % ?Estimated Average Glucose 140 - mg/dL ???Lab:Liver Panel (Order Da 05/31/2024) (Collection Date - 05/31/2024) ? Value Reference Range ?Bilirubin Total 0.9 0.0- 1.0 - mg/dL ?Bilirubin Direct 0.3 0.0 -0.5 - mg/dL ?Aspartate Amino Transferase 16 5-37 - U/L ?Alanine Aminotransferase 15 0-40 - U/L ?Total Protein 6.8 6.5-8. 0 - g/dL ?Albumin Level 4.0 3.5-5. 0 - g/dL ?Alkaline Phosphatase 68 39-117 - U/L * Examination: ???General Examination: ?GENERAL APPEARANCE:?normal.?HEAD:?abnormal with a chemical burn on forehead from trying to remove a fiorella keratosis.?SKIN:?good turgor.?HEART:?no murmurs, rubs, gallops , regular rate and rhythm.?LUNGS:?no wheezes, rales, rhonchi , good air movement , clear to auscultation bilaterally.? Assessment: * Assessment: 1.?Sensation of feeling cold - R68.89 (Primary)?2.?Prostatism - N40.0?3.?Type 2 diabetes mellitus with mild nonproliferative diabetic retinopathy without macular edema, bilateral - E11.3293?4.?Angina pectoris - I20.9?5.?Pure hypercholesterolemia - E78.00?6.?Essential hypertension - I10? Plan: * Treatment: 2.?Prostatism? Continue Tamsulosin HCl Capsule, 0.4 MG, TAKE 1 CAPSULE BY MOUTH TWICE DAILY, 30 MINUTES AFTER THE SAME MEALS.?? Notes: need notes from urology this month, RECORD REQUESTED FROM UROLOGY?? 3.?Type 2 diabetes mellitus with mild nonproliferative diabetic retinopathy without macular edema, bilateral? Continue metFORMIN HCl Tablet, 1000 MG, TAKE 1 TABLET BY MOUTH TWICE DAILY.?? Notes: well controlled with good a1c, will continue current regiment?? 4.?Angina pectoris? Notes: well controlled?? 5.?Pure hypercholesterolemia ? Continue Atorvastatin Calcium Tablet, 40 MG, Take 1 tablet by mouth once daily.?? Notes: stable, at goal, will contiue current regiment?? 6.?Essential hypertension? Continue Valsartan-hydroCHLOROthiazide Tablet, 320-12.5 MG, Take 1 tablet by mouth once daily;?Continue amLODIPine Besylate Tablet, 10 MG, Take 1 tablet by mouth once daily;?Continue Metoprolol Succinate ER Tablet Extended Release 24 Hour, 100 MG, Take 1 tablet by mouth once daily.?? Notes: stable, will continue current regiment?? * Procedure Codes:?25897 VENIP UNCT, ROUTINE* * * Sign off status: Completed true * Provider:?John Dejesus MD Date:?1 Generated for Higinioi ng/Claire/eTransmitting on:?01/03/2025 12:12 PM EDT History and Physical Notes * HPI (History [...]
--- OUTSIDE RECORDS SUMMARY | 2025-01-03 12:12 | XMS_ITS ---
Author Organization John Dejesus MD Address [address] [place], [place] [phone] Care Team Providers Care Gas Collection System Operator Name Role Phone John Dejesus Primary Care Provider Results Component Value Reference Range Notes Liver Panel Reviewed date:05/31/2024 05:20:25 PM Interpretation: Performing Lab:[facility], [address] [place] [phone] Notes/Report: Bilirubin Total 0.9 0.0-1.0 mg/dL Bilirubin Direct 0.3 0.0-0.5 mg/dL Aspartate Amino Transferase 16 5-37 U/L Alanine Aminotransferase 15 0-40 U/L Total Protein 6.8 6.5-8.0 g/dL Albumin Level 4.0 3.5-5.0 g/dL Alkaline Phosphatase 68 39-117 U/L Glucose Fasting Reviewed date:05/31/2024 05:20:14 PM Interpretation: Performing Lab:[facility], [address] [place] [phone] Notes/Report: Glucose Fasting 112 60-99 mg/dL A fasting glucose from 100-125 mg/dl is considered impaired (pre-diabetes). Lipid Panel with Reflex Reviewed date:05/31/2024 09:37:16 PM Interpretation: Performing Lab:[facility], [address] [place] [phone] Notes/Report: Triglycerides 72 <150 mg/dL Desirable Triglyceride: [...] A1c Reviewed date:05/31/2024 09:21:34 PM Interpretation: Performing Lab:[facility], [address] [place] [phone] Notes/Report: Hemoglobin A1c % 6.5 <6.0 % [...] average glucose, using the formula of the F6H-Eggameh Average Glucose study (ADAG), Diabetes Care, Vol.31,#8, Mar. 2007 REASON FOR VISIT FASTING LIPIDS Encounters Encounter Location Date Provider Diagnosis John Dejesus MD [address] [place] [address] [address] [place], [place] [phone] 05/31/2024 John Dejesus Type 2 diabetes iam itus without complication E11.9 and Pure hypercholesterolemia E78.00 Assessments Encounter Date Diagnosis (ICD Code) Assessment Notes Treatment Notes Treatment Clinical Notes Section Notes 05/31/2024 Type 2 diabetes iam itus without complication (ICD-10 - E11.9) 05/31/2024 Pure hypercholesterolemia (ICD-10 - E78.00) Plan Of Treatment Next Appt Details Provider Name:John iyerr, 01/10/2025 09:30:00 AM, [address] [facility], [address], [place], [place], [phone], Progress Notes * Bobby CHAIREZDOB:1945 (78 yo M)Acc No.[id number]:05/31/2024 Progress Note Patient:?Bobby Chairez Provider:?John Dejesus MD :1945???Age:78 Y???Sex:Male Kd e:05/31/2024 Address:[address] [place], [place] [phone] Subjective: * Chief Complaints: * ???FASTING LIPIDS * Medical History:? * Surgical History:? * Hospitalization/Major Diagno stic Procedure:? * Medications:? Objective: Assessment: * Assessment: 1.?Type 2 diabetes mellitus without complication - E11.9 (Primary)?2.?Pure hypercholesterolemia - E78.00? Plan: * Treatment: 2.?Pure hypercholesterolemia ?LAB: Liver Panel ?LAB: Glucose Fasting ?LAB: Lipid Panel with Reflex ?LAB: Hemoglobin A1c * Procedure Codes:?36328 VENIP UNCT, ROUTINE* * * Sign off status: Completed true * Provider:?John Dejesus MD Date:?1 Generated for Higinioi ng/Facrescenciog/eTransmitting on:?01/03/2025 12:12 PM EDT
--- OUTSIDE RECORDS SUMMARY | 2025-01-03 12:12 | XMS_ITS | Clinical Summary ---
Author Organization [facility] ity Address [address] [place] [address] Care Team Providers Care Broadcast Engineer Name Role Phone Unavailable Primary Care Provider Unavailabl e Social History Tobacco Use Types Packs/Day Years Used Date Smoking Tobacco: Never Assessed Sex and Gender Information Value Date Recorded Sex Assigned at Not on file Legal Sex Male 8:42 AM EST Gender Identity Not on file Sexual Orientation Not on file Plan of Treatment Health Maintenance Due Date Last Done Comments DTaP,Tdap,and Td Vaccines (1 - Tdap) 1964 Pneumococcal Vaccine: 50+ Ye ars (1 of 1 - PCV) 10/28/1995 Zoster Vaccines (1 of 2) 10/28/1995 RSV Immunization Adult Patie nts (1 - 1-dose 75+ series) 2020 COVID-19 Vaccine ( - 2023-2 5 season) 2024 Influenza Vaccine (Season Ended) 2025 HIB Vaccines Aged Out No longer eligi ble based on patient's age to complete this topic HPV Vaccines Aged Out No longer eligi ble based on patient's age to complete this topic Hepatitis A Vaccines Aged Out No long er eligible based on patient's age to complete this topic Hepatitis B Vaccines Aged Out No long er eligible based on patient's age to complete this topic IPV Vaccines Aged Out No longer eligi ble based on patient's age to complete this topic MMR Vaccines Aged Out No longer eligi ble based on patient's age to complete this topic Meningococcal ACWY Vaccine Aged Out N o longer eligible based on patient's age to complete this topic Meningococcal B Vaccine Aged Out No l onger eligible based on patient's age to complete this topic RSV Immunization Patients Un benito 20 months Aged Out No longer eligible b ased on patient's age to complete this topic Varicella Vaccines Aged Out No longer eligible based on patient's age to complete this topic
--- OUTSIDE RECORDS SUMMARY | 2025-01-03 12:13 | XMS_ITS ---
Author Organization John Dejesus MD Address [address] [place], [place] [id number] Care Team Providers Care Cashier Name Role Phone John Dejesus Primary Care Provider Results Component Value Reference Range Notes Complete Blood Count Auto Di ff (Not yet reviewed by provider) Interpretation: Performing Lab:[facility], [address] [place] [phone] Notes/Report: White Blood Count 5.9 4.8-10.8 X10*3/uL [...] yet revi ewed by provider) Interpretation: Performing Lab:[address] [phone] Notes/Report: Hemoglobin A1c % 6.6 <6.0 % [...] average glucose, using the formula of the O1W-Cfxzkri Average Glucose study (ADAG), Diabetes Care, Vol.31,#8, 2007 UA ClnCatch+Micro w/rflx Cul t (Not yet reviewed by provider) Interpretation: Performing Lab:[address] [phone] Notes/Report: Urine, Clean Catch Color Urine Yellow Appearance Urine Clear PH 6.0 5.0-9.0 Glucose Urine UA Negative Negative mg/dL Urine Blood Negative Negative Specific [place] - Urine 1.025 1.005-1.025 Urine Protein Negative [...] Location Date Provider Diagnosis John Dejesus MD [address] [place] [address] Drive [address] [place], [place] [phone] 01/03/2025 John Dejesus Blood tests for rout [...] hypercholesterolemia (ICD-10 - E78.00) Plan Of Treatment Pending Test Test Name Order Date Complete Blood Count Auto Diff 5 Comprehensive [place]. Panel Fast 5 Lipid Panel 01/03/2025 PSA,Total (Free>4and<10) 01/03/2025 Microalbumin, Random 01/03/2025 Hemoglobin A1c 01/03/2025 UA ClnCatch+Micro w/rflx Cult 01/03/2025 Next Appt Details Provider Name:John Cain ier, 01/10/2025 09:30:00 AM, [address] [place] [address] Drive, [address], [place], [place], [phone], Progress Notes * Bobby CHAIREZDOB:1945 (79 yo M)Acc No.[id number]:01/03/2025 Progress Note Patient:?Bobby CHAIREZ Provider:?John Dejesus MD :1945???Age:79 Y???Sex:Male Kd e:01/03/2025 [facility] [id number] Subjective: * Chief Complaints: * ???1. FASTING LABS. * Medical History:? Objective: * Vitals:? Assessment: * Assessment: 1.?Blood tests for routine g eneral physical examination - Z00.00 (Primary)???2.?Type 2 diabetes mellitus without complication - E11.9???3.?Prostatism - N40.0???4.?Essential hypertension - I10???5.?Pure hypercholesterolemia - E78.00??? Plan: * Treatment: 2.?Type 2 diabetes mellitus without complication?LAB: Complete Blood Count Auto Diff (Collection Date & Time - 01/03/2025 08:00 AM) ?LAB: Comprehensive [place]. Panel Fast ?LAB: Lipid Panel ?LAB: PSA,Total (Free>4and<10) ?LAB: Microalbumin, Random ?LAB: Hemoglobin A1c (Collection Date & Time - 01/03/2025 08:00 AM) ?LAB: UA ClnCatch+Micro w/rflx Cult (Collection Date & Time - 01/03/2025 08:00 AM) 3.?Prostatism?LAB: Complete Blood Count Auto Diff (Collection Date & Time - 01/03/2025 08:00 AM) ?LAB: Comprehensive [place]. Panel Fast ?LAB: Lipid Panel ?LAB: PSA,Total (Free>4and<10) ?LAB: Microalbumin, Random ?LAB: Hemoglobin A1c (Collection Date & Time - 01/03/2025 08:00 AM) ?LAB: UA ClnCatch+Micro w/rflx Cult (Collection Date & Time - 01/03/2025 08:00 AM) 4.?Essential hypertension?LAB: Complete Blood Count Auto Diff (Collection Date & Time - 01/03/2025 08:00 AM) ?LAB: Comprehensive [place]. Panel Fast ?LAB: Lipid Panel ?LAB: PSA,Total (Free>4and<10) ?LAB: Microalbumin, Random ?LAB: Hemoglobin A1c (Collection Date & Time - 01/03/2025 08:00 AM) ?LAB: UA ClnCatch+Micro w/rflx Cult (Collection Date & Time - 01/03/2025 08:00 AM) 5.?Pure hypercholesterolemia ?LAB: Complete Blood Count Auto Diff (Collection Date & Time - 01/03/2025 08:00 AM) ?LAB: Comprehensive [place]. Panel Fast ?LAB: Lipid Panel ?LAB: PSA,Total (Free>4and<10) ?LAB: Microalbumin, Random ?LAB: Hemoglobin A1c (Collection Date & Time - 01/03/2025 08:00 AM) ?LAB: UA ClnCatch+Micro w/rflx Cult (Collection Date & Time - 01/03/2025 08:00 AM) * Procedure Codes:?69381 VENIP UNCT, ROUTINE* * * The named appointment provid er may or may not be the originator of this progress note, and it is not deemed complete until electronically signed by the appointment provider. Sign off status: Pending * Provider:?John Dejesus MD Date:?0 01/03/2025 Generated for Mandy conti/Claire/Radhaitting on:?01/03/2025 12:12 PM EDT
[2025-01-03 12:24] LABS: Creatinine Urine 207.18 mg/dL; Microalbum/Creatinine Ratio Ur 4.3 ug/mg cr (<30)
[2025-01-03 12:30] LABS: PSA,Total (Free>4and<10) 2.79 ng/mL (0.00-4.00)
[2025-01-03 12:49] LABS: Alanine Aminotransferase 13 U/L (0-40); Alkaline Phosphatase 65 U/L (39-117); Anion Gap 14 (12-20); Aspartate Amino Transferase 21 U/L (5-37); Bilirubin Total 0.5 mg/dL (0.0-1.0); Blood Urea Nitrogen 21 mg/dL (9-16); Calcium 9.2 mg/dL (8.4-10.2); Carbon Dioxide 23 mmol/L (22-29); Chloride 108 mmol/L (96-108); Cholesterol 126 mg/dL (<200); Estimated Glomerular Filt Rate > 60; Glucose Fasting 132 mg/dL (60-99); HDL Cholesterol 38 mg/dL (>40); LDL Cholesterol Calculated 73 mg/dL (<100); Potassium 3.7 mmol/L (3.3-5.1); Sodium 141 mmol/L (135-145); Total Protein 6.6 g/dL (6.5-8.0); Triglycerides 76 mg/dL (<150)
== END 2025-01-03 08:01 | disposition home or self-care (01) ==
LOC: HO.LNP 08:00
PROVIDERS: Visit Provider Internal Medicine
DX: Z00.00 Encounter for general adult medical examination without abnormal findings (principal); Z12.5 Encounter for screening for malignant neoplasm of prostate; E11.9 Type 2 diabetes mellitus without complications; N40.0 Benign prostatic hyperplasia without lower urinary tract symptoms; E78.00 Pure hypercholesterolemia, unspecified; I10 Essential (primary) hypertension
CPT/HCPCS: 80053; 80061; 81001; 82043; 82570; 83036; 84153; 85025

== ENCOUNTER 2025-03-04 12:16 | Outpatient (REF) | payer MEDICARE, SELFPAY ==
--- OUTSIDE RECORDS SUMMARY | 2025-01-10 05:30 | XMS_ITS ---
Author Organization John Dejesus MD Address [address] [place], [place] [id number] Care Team Providers Care Lozenge Maker Name Role Phone Oleg John Primary Care Provider Allergies No Known Allergies Reason For Referral [...] Problem Inflammation of joint of shoulder region (486104979) Shoulder arthritis (M19.019) Active confirmed Vital Signs Blood pressure systolic 138 mm Hg 01/11/20 25 Blood pressure diastolic 50 mm Hg 025 Height 64 in 01/10/2025 Weight 168 lbs 01/10/2025 BMI 28.83 kg/m2 01/10/2025 Encounters Encounter Location Date Provider Diagnosis John Dejesus MD [address] [place] [address] [place] [phone] 01/10/2025 John Dejesus Annual physical exam Z00.00 [...] Shoulder arthritis (ICD-10 - M19.019) [place] [facility] 01/10/2025 Type 2 diabetes iam itus [...] iscussed with patient Shoulder arthritis [place] [facility] Type 2 diabetes mellitus without [...] Med[place] Next Appt Details Provider Name:John chauhan, 06/27/2025 07:30:00 AM, [address] [place] [address], [place] [address], [place], [place], [phone], Provider Name:John chauhan, 07/04/2025 10:45:00 AM, [address], [address], [place], [place], [phone], Provider Name:John Cain gissel, 01/16/2026 07:00:00 AM, [address] [facility], [address], [place], [phone], Provider Name:John Cain gissel, 01/23/2026 09:30:00 AM, [address] [facility], [address], [place], [place], [phone], Progress Notes * MIHAELA BobbyDOB:1945 (79 yo M)Acc No.[id number]:01/10/2025 Progress Notes Patient: Bobby DEVINE Provider: Tim Dejesus MD :1945 A ge:79 Y S ex:Male Date:01/10/2025 Address:[address] [place], [place] [phone] Subjective: * Chief Complaints: * A NNUAL [...] * Family History: F ather: 75 yrs, [place]. M other: 86 yrs, alzheimer. 6 brother(s) , 6 sister(s) . . FATHER LA MOTHER ALZHEIMER'S , Denies mental health/substance abuse [...] 2. S houlder arthritis Notes: [place] [facility] Referral To:Vijay Medina Orthopedic Surgery Reason:Shoulder [...] MD Date: 0 01/10/2025 Generated for Mandy conti/Claire/[place] on: 0 03/04/2025 01:06 PM EDT History and Physical Notes * [...]
--- NOTE | ~2025-03-04 | XR_ITS ---
EXAMINATION: XR SHOULDER, LEFT CLINICAL INFORMATION: M25.519 - Pain in unspecified shoulder COMPARISON: 02/08/2017 TECHNIQUE: AP external rotation, Grashey, and axillary views of the left shoulder. FINDINGS: Normal bone mineralization. No fracture, dislocation, or suspicious bone lesion. Normal alignment. The glenohumeral joint demonstrates mild degenerative arthritis. The AC joint demonstrates mild superior and undersurface spurring. There is a type II acromion. No undersurface spurring. There is significant narrowing of the subacromial space, suggesting underlying rotator cuff tearing. Remainder of the soft tissue and bony structures appear normal. XR/XR shoulder LT min 2V IMPRESSION: 1. Mild degenerative arthritis in the glenohumeral joint and AC joint. 2. Significant narrowing of the subacromial space suggesting underlying rotator cuff tear. Electronically signed by: Mikhail Streeter MD 03/04/2025 02:31 PM EDT
--- OUTSIDE RECORDS SUMMARY | 2025-03-04 13:06 | XMS_ITS | Patient Health Record ---
Author Organization [facility] Address [address] [place] [address] Care Team Providers Care Reservoir Engineering Advisor Name Role Phone Oleg CHAPARRO, John Primary Care Provider Sushant Prince Unavailable [phone] Reason For Referral No Information Medications Medication SIG (Take, Route, Frequency, Duration) Notes Start Date End Date Status metFORMIN HCl 500 MG 1 tablet with meals Orally Once a day Active Atorvastatin Calcium 40 MG 1 tablet Oral ly Once a day Active Aspirin 325mg 1 tablet Orally Once a day Active Diovan 80 MG 1 tablet Orally Once a day Active Metoprolol Succinate ER 100 MG 1 tablet Orally Once a day Active Problems Problem Type SNOMED Code ICD Code Onset Dates Problem Status W/U Status Risk Notes Problem 684342179 Encounter for screening for malignant neoplasm of colon (Z12.11) Active confirmed Problem Screening for malignant neoplasm of rectum (760256405) Encounter for screening for malignant neoplasm of rectum (Z12.12) Active confirmed Problem [id number] Long-term use of aspirin therapy (Z79.82) Active confirmed Plan Of Treatment Future Test Test Name Order Date COLONOSCOPY 11/10/2016 Insurance Providers Payer Name Payer Address Payer Phone Subscriber Number Group Number Insured Name Patient Relationship to Insured Coverage Start Date Coverage End Date [employer] MEDI COMP (REFERRAL REQUIRED) [address] [address] [place] [address] [phone] [id number] LORRIE CHAIREZ Self - patient is the insured [employer] [address] [place] [address] [id number] LORRIE CHAIREZ Self - patient is the insured Medical (General) History Medical History History ICD Code Hyperlipidemia HTN NIDDM Denies PA,CVA,Lung disease,renal disease Negative colonoscopies in and 2006, except for diverticulosis and internal hemorrhoids Negative ETT in 08/2016 at [facility] [place]
--- OUTSIDE RECORDS SUMMARY | 2025-03-04 13:06 | XMS_ITS | Clinical Summary ---
Author Organization [facility] Address [address] [place] [address] Care Team Providers Care Workday Senior Associate Name Role Phone Unavailable Primary Care Provider [...] Vaccine ( - 2023-2 5 season) 2024 Depression Screening 08/15/2024 Influenza Vaccine (#1) 2025 HIB Vaccines Aged Out No longer [...]
== END 2025-03-04 12:17 | disposition home or self-care (01) ==
LOC: HO.HOSX 12:16
PROVIDERS: Visit Provider Orthopaedic Surgery
DX: M12.812 Other specific arthropathies, not elsewhere classified, left shoulder (principal); M25.512 Pain in left shoulder
CPT/HCPCS: 20610; 73030; 99202; J0665; J1100; J2003

== ENCOUNTER 2025-03-04 13:45 | Outpatient (AMB) | payer MEDICARE, SELFPAY ==
--- NOTE | 2025-03-04 13:55 | A.OFFVIS_ITS ---
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 Patient reports pain has been going on for 1 month, while he was golfing he felt a pull in his tricep. Later he felt onset of pain in his shoulder that radiates down to the medial aspect of the elbow, he felt a pull in the tricep area. A second injury happened about a year ago, when he slipped and fell on ice while holding on to the doorhandle of car with left arm. A snapping is felt in the shoulder with ROM. Currently, pain is only felt with reaching or lifting motions. Denies numbness or tingling. Hx of cortisone injection that was helpful. Allergies N.K.D.A. 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 He was golfing about a month ago and he hit the ground when it his clubs and felt immediate left shoulder pain. 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 He states it is not unbea rable but he would like to improve. [facility] Surgical History (Updated 03/04/25 @ 14:07 by SMA Nhan) History of total left hip replacement Physical Exam Vital Signs: BMI result Body Mass Index 28.8 Extrem Other: On exam he has a 4-/5 empty can compared to the right and full passive range of motion. He can get his hand to the back of his head with pain. Office Procedures Joint Inj/Aspir; Non-Pain Clin Joint Injection/Drain Details: Injected 1 mL of Decadron and 3 mL 1% lidocaine and 3 mL of 0.25% Marcaine. Site was prepped using aseptic technique. Patient tolerated the procedure well. Shoulders, Hips, Knees, Shoulder Injection Large joint : Left Shoulder Coding Procedure code (CPT) selection complete Results Reviewed Results Reviewed: I personally reviewed the MR images. 1. Mild degenerative arthritis in the glenohumeral joint and AC joint. 2. Significant narrowing of the subacromial space suggesting underlying rotator cuff tear. Assessment & Plan Assessment & Plan (1) Rotator cuff arthropathy of left shoulder: Code(s): M12.812 - Other specific arthropathies, not elsewhere classified, left shoulder Category: Medical Plan: This is a 79-year-old with rotator cuff arthropathy of the left shoulder. It is possible that he has better rotator cuff function than currently appears but it has only been a month since he injured his shoulder. Discussed this with him and we decided to perform a left shoulder injection. This was done without difficulty. If she continues to have pain over the next several months he will contact me and we consider physical therapy. He has pain has not been present for a sufficient amount of time, in my opinion, to warrant surgery. Orders: Orders XR shoulder LT min 2V Today M25.519 - Pain in unspecified shoulder Coding Level of Care Code New Pt Level 3 (16443) Diagnoses Rotator cuff arthropathy of left shoulder M12.812 CPT Codes Shoulders, Hips, Knees, - Shoulder Injection Large joint : Left Shoulder ([id number])
[2025-03-04 13:59] VITALS: BMI 28.8
== END 2025-03-04 15:01 | disposition home or self-care (01) ==
LOC: HO.HOS 13:46
PROVIDERS: Visit Provider Orthopaedic Surgery
DX: M12.812 Other specific arthropathies, not elsewhere classified, left shoulder (principal)
CPT/HCPCS: 20610; 99203

== ENCOUNTER → 2025-03-04 13:47 | Outpatient (BNV) | payer MEDICARE, SELFPAY | PROVIDERS: Visit Provider Radiology Diagnostic Radiology | DX: M25.512 Pain in left shoulder (principal) | CPT/HCPCS: 73030 ==

== ENCOUNTER 2025-06-27 10:46 | Outpatient (REF) | payer MEDICARE, SELFPAY ==
--- OUTSIDE RECORDS SUMMARY | 2024-01-05 06:00 | XMS_ITS ---
Author Organization John Dejesus MD Address [address] [place] [id number] Care Team Providers Care Director Of Community Life Name Role Phone John Dejesus Primary Care Provider [phone] Allergies No Known Allergies Results Component Value Reference Range Notes Occult Blood, Stool, Guaiac Reviewed date:01/05/2024 01:20:19 PM Interpretation:Negative Performing Lab: Notes/Report: Negative Occult Blood, Stool, Guaiac Neg Electrocardiogram (EKG) Reviewed date:01/05/2024 11:28:20 AM Interpretation: Performing Lab: Notes/Report: REASON FOR VISIT annual visit, No Covid symptoms, c/o bilateral leg edema Medications Medication SIG (Take, Route, Frequency, Duration) Notes Start Date End Date Status Transderm-Scop (1.5 MG) 1 MG/3DAYS 1 patch to skin as needed Transdermal every 3 days for 10 days 01/20/2017 Not-Taking Atorvastatin Calcium 40 MG Take 1 tablet by mouth once daily for 90 Active metFORMIN HCl 1000 MG TAKE 1 TABLET BY M OUTH TWICE DAILY Active Tamsulosin HCl 0.4 MG TAKE 1 CAPSULE BY MOUTH TWICE DAILY, 30 MINUTES AFTER THE SAME MEALS Active amLODIPine Besylate 10 MG Take 1 tablet by mouth once daily Active Aspirin 81 MG 1 tablet Orally Once a day Active Valsartan-hydroCHLOROthia zide 320-12.5 MG Take 1 tablet by mouth once daily Active Metoprolol Succinate ER 100 MG Take 1 tablet by mouth once daily Active Social History Tobacco Use: Social History Observation Description Date Details (start date - stop date) Former Smoker NA - NA Tobacco Use/Smoking Question Answer Notes Patient is a former smoker How long has it been since y ou last smoked? > 10 years Additional Findings: Tobacco Non-User Fo rmer smoker, currently using no form of tobacco Alcohol Screen Question Answer Notes Did you have a drink containing alcohol in the p ast year? No Points 0 Interpretation Negative Vital Signs Blood pressure systolic 132 mm Hg 01/05/20 24 Blood pressure diastolic 60 mm Hg 024 Height 64 in 01/05/2024 Weight 167 lbs 01/05/2024 BMI 28.66 kg/m2 01/05/2024 Encounters Encounter Location Date Provider Diagnosis John Dejesus MD [address] [place] [address] [address] [place], [place] [id number] 01/05/2024 John Dejesus Type 2 diabetes iam itus without complication E11.9 ; Annual physical exam Z00.00 ; Palpitations R00.2 ; Guaiac positive stools R19.5 ; Essential hypertension I10 ; Prostatism N40.0 and Pure hypercholesterolemia E78.00 Assessments Encounter Date Diagnosis (ICD Code) Assessment Notes Treatment Notes Treatment Clinical Notes Section Notes 01/05/2024 Type 2 diabetes iam itus without complication (ICD-10 - E11.9) stable, will continue current regiment 01/05/2024 Annual physical exam (ICD-10 - Z00.00) labs reviewed and discussed with patient 01/05/2024 Palpitations (ICD-10 - R00.2) 01/05/2024 Guaiac positive stoo ls (ICD-10 - R19.5) will send with 3 cards and recheck 01/05/2024 Essential hypertensi on (ICD-10 - I10) stable, will continue current regiment 01/05/2024 Prostatism (ICD-10 - N40.0) stabe, will continue current regiment 01/05/2024 Pure hypercholesterolemia (ICD-10 - E78.00) doing well, will continue current regiment Plan Of Treatment Medication Medication Name Sig Start Date Stop Date Notes metFORMIN HCl 1000 MG TAKE 1 TABLET BY M OUTH TWICE DAILY Tamsulosin HCl 0.4 MG TAKE 1 CAPSULE BY MOUTH TWICE DAILY, 30 MINUTES AFTER THE SAME MEALS amLODIPine Besylate 10 MG Take 1 tablet by mouth once daily Valsartan-hydroCHLOROthiazid e 320-12.5 MG Take 1 tablet by mouth once daily Metoprolol Succinate ER 100 MG Take 1 ta blet by mouth once daily Treatment Notes Assessment Notes Type 2 diabetes mellitus without complic ation stable, will continue current regiment Annual physical exam labs reviewed and d iscussed with patient Guaiac positive stools will send with 3 cards and recheck Essential hypertension stable, will cont inue current regiment Prostatism stabe, will continue current regiment Pure hypercholesterolemia doing well, wi ll continue current regiment Pending Test Test Name Order Date ECG 30 day event monitor 01/05/2024 Next Appt Details Follow Up: 2 Months, Reason: Provider Name:John chauhan, 07/04/2025 10:45:00 AM, [address] [place] [address], [address], [phone], Provider Name:John chauhan, 01/16/2026 07:00:00 AM, [address] [place] [address], [address], [phone], Provider Name:John chauhan, 01/23/2026 09:30:00 AM, [address] [place] [address], [address], [phone], Progress Notes * MIHAELABobbyDOB:1945 (78 yo M)Acc No.[id number]:01/05/2024 Progress Notes Patient: Bobby Hubbard Provider: Tim Dejesus MD :1945 A ge:78 Y S ex:Male Date:01/05/2024 Address:[address] [place], [place] [id number] Subjective: * Chief Complaints: * A nnual visitNo Covid symptomsC/o bilateral leg edema * HPI: D epression Screening: PHQ-9 L ittle interest or pleasure in doing things N ot at all, F eeling down, depressed, or hopeless N ot at all, T rouble falling or staying asleep, or sleeping too much N ot at all, F eeling tired or having little energy N ot at all, P oor appetite or overeating N ot at all, F eeling bad about yourself or that you are a failure, or have let yourself or your family down N ot at all, T rouble concentrating on things, such as reading the newspaper or watching television N ot at all, M oving or speaking so slowly that other people could have noticed; or the opposite, being so fidgety or restless that you have been moving around a lot more than usual N ot at all, T houghts that you would be better off or of hurting yourself in some way N ot at all, T otal Score 0 . I nterpretation and Intervention D epression Screening Findings N egative, F ollow-Up for Depression : review of PHQ-9 found negative result, no follow-up needed. C ommunication Needs: Communication Needs D oes the patient have a hearing impairment N o, D oes the patient have a vision impairment? Y es, I f yes, what is the vision impairment? G lasses, D oes the patient have a cognition impairment? N o. F all Risk: History H ave you had any falls with injury in the past year? N o, H ave you had two or more falls in the past year? N o. S RAUL Questions: SDOH Questions I n the past year have you been worried about losing housing? N o, I n the past year have you or any family members you live with been unable to get any of the following when it was really needed? Check all that apply: N one. S ymptom(s): patient is a 78 yo male here for annual visit with review of recent labs and follow up of chronic issues, at times if sleeping on side will wake up and wakes up with rapid heart beat. * ROS: G eneral/Constitutional: Patient denies f atigue , headache. C hange in appetite?denies. C hills d enies. F ever d enies. O phthalmologic: Blurred vision d enies. D ischarge d enies. P ain d enies. E NT: Patient denies d ecreased sense of smell , any loss of taste , sore throat. D ecreased hearing d enies. S ore throat d enies. S wollen glands d enies. E ndocrine: Cold intolerance d enies. E xcessive thirst d enies. H eat intolerance d enies. W eight loss d enies. R espiratory: Cough d enies. S hortness of breath at rest d enies. S hortness of breath with exertion d enies. W heezing d enies. C ardiovascular: Chest pain at rest d enies. C hest pain with exertion?denies. I rregular heartbeat d enies. S hortness of breath d enies. ? G astrointestinal: Abdominal pain d enies. C hange in bowel habits d enies. D iarrhea d enies. N ausea d enies. R ectal bleeding d enies. V omiting d enies . G enitourinary: Blood in urine d enies. D ifficulty urinating d enies. F requent urination d enies. M usculoskeletal: Patient denies m uscle aches. P ainful joints d enies. W eakness d enies. P eripheral Vascular: Patient denies r ed and blue toes. S kin: Dry skin d enies. I tching d enies. D enies?Mole(s), changes in moles, new moles or any lesions of concern. D enies P hotosensitivity. R kulwant d enies. N eurologic: Dizziness d enies. F ainting d enies. H eadache?denies. * Medical History: * Surgical History: * Hospitalization/Major Diagno stic Procedure: * Family History: F ather: 75 yrs, NE. M other: 86 yrs, alzheimer. 6 brother(s) , 6 sister(s) . . FATHER NE MOTHER ALZHEIMER'S , Denies mental health/substance abuse family history, Denies mental health/substance abuse family history, No pertinent family medical history, No pertinent family medical history, Denies mental health/substance abuse family history. * Social History: T obacco Use: T obacco Use/Smoking P atient is a f ormer smoker, H ow long has it been since you last smoked? > 10 years, A dditional Findings: Tobacco Non-User F ormer smoker, currently using no form of tobacco. D rugs/Alcohol: A lcohol Screen D id you have a drink containing alcohol in the past year? N o, P oints 0 , I nterpretation N egative. M iscellaneous: C affeine: yes, frequency:, 1-2 cups per day. no Children. no Community involvements. Exercise: yes, PUSH UPS LEG STRETCHES GOLFS 3 TIMES AWEEK IN SUMMER, GOES 2 TIMES IN THE WINTER. Housing: owning. Living with: living with x- girlfriends grandson. Marital status: single. Occupation: retired. Pets: none. no Travel outside of the [place]. * Medications: T akingAspirin 81 MG Tablet Delayed Release 1 tablet Orally Once a dayMetoprolol Succinate ER 100 MG Tablet Extended Release 24 Hour Take 1 tablet by mouth once daily Valsartan-hydroCHLOROthiazide 320-12.5 MG Tablet Take 1 tablet by mouth once daily amLODIPine Besylate 10 MG Tablet Take 1 tablet by mouth once daily Tamsulosin HCl 0.4 MG Capsule TAKE 1 CAPSULE BY MOUTH TWICE DAILY, 30 MINUTES AFTER THE SAME MEALS Atorvastatin Calcium 40 MG Tablet Take 1 tablet by mouth once daily metFORMIN HCl 1000 MG Tablet TAKE 1 TABLET BY MOUTH TWICE DAILY Taking Aspirin 81 MG Tablet Delayed Release 1 tablet Orally Once a dayTaking Metoprolol Succinate ER 100 MG Tablet Extended Release 24 Hour Take 1 tablet by mouth once daily Taking Valsartan-hydroCHLOROthiazide 320-12.5 MG Tablet Take 1 tablet by mouth once daily Taking amLODIPine Besylate 10 MG Tablet Take 1 tablet by mouth once daily Taking Tamsulosin HCl 0.4 MG Capsule TAKE 1 CAPSULE BY MOUTH TWICE DAILY, 30 MINUTES AFTER THE SAME MEALS Taking Atorvastatin Calcium 40 MG Tablet Take 1 tablet by mouth once daily Taking metFORMIN HCl 1000 MG Tablet TAKE 1 TABLET BY MOUTH TWICE DAILY Not-Taking/PRNTransderm-Scop (1.5 MG) 1 MG/3DAYS Patch 72 Hour 1 patch to skin as needed Transdermal every 3 daysMedication List reviewed and reconciled with the patientNot-Taking/PRN Transderm-Scop (1.5 MG) 1 MG/3DAYS Patch 72 Hour 1 patch to skin as needed Transdermal every 3 daysMedication List reviewed and reconciled with the patient * Allergies: N .K.D.A.yes[Allergies Verified] Objective: * Vitals: H t: 64, Wt:167, BMI:28.66, BP:132/60. * P ast Orders: L ab:UA CC w/rflx Micro + Cult (Order Date - 12/27/2023) (Collection Date - 12/27/2023) Value Reference Range Color Urine Yellow - Appearance Urine Clear - PH 7.5 5.0-9.0 - Glucose Urine UA Negative Negative - mg/dL Urine Blood Negative Negative - Specific [place] - Urine 1.015 1.005-1.025 - Urine Protein Negative Neg-Trace - mg/dL Urine Ketones Negative Negative - mg/dL Nitrite Urine Negative Negative - Leukocyte Esterase Urine Negative Negative - L ab:Comprehensive [place]. Panel Fast (Order Date - 12/27/2023) (Collection Date - 12/27/2023) Value Reference Range Sodium 143 135-145 - mmol/L Bilirubin Total 0.7 0.0-1.0 - mg/dL Aspartate Amino Transferase 16 5-37 - U/L Alanine Aminotransferase 14 0-40 - U/L Total Protein 6.5 6.5-8.0 - g/dL Albumin Level 3.9 3.5-5.0 - g/dL Alkaline Phosphatase 64 39-117 - U/L Potassium 4.4 3.3-5.1 - mmol/L Chloride 106 96-108 - mmol/L Carbon Dioxide 28 22-29 - mmol/L Anion Gap 13 12-20 - Blood Urea Nitrogen 19 H 9-16 - mg/dL Creatinine 0.99 0.5-1.4 - mg/dL Estimated Glomerular Filt Rate > 60 - Glucose Fasting 123 H 60-99 - mg/dL Calcium 9.5 8.4-10.2 - mg/dL L ab:Lipid Panel (Order Date - 12/27/2023) (Collection Date - 12/27/2023) Value Reference Range Triglycerides 65 <150 - mg/dL Cholesterol 114 <200 - mg/dL LDL Cholesterol Calculated 61 <100 - mg/dL HDL Cholesterol 40 L >40 - mg/dL L ab:PSA,Total (Free>4and<10) (Order Date - 12/27/2023) (Collection Date - 12/27/2023) Value Reference Range PSA,Total (Free>4and<10) 2.01 0.00-4.00 - ng/ mL L ab:Microalbumin, Random (Order Date - 12/27/2023) (Collection Date - 12/27/2023) Value Reference Range Creatinine Urine 128.30 - mg/dL Microalbumin Urine 5.0 - mg/L Microalbum Creatinine Ratio Ur 3.8 <30 - ug/ mg cr L ab:Hemoglobin A1c (Order Date 12/27/2023) (Collection Date - 12/27/2023) Value Reference Range Hemoglobin A1c % 6.6 H <6.0 - % Estimated Average Glucose 143 - mg/dL L ab:Complete Blood Count Auto Diff (Order Date 12/27/2023) (Collection Date 12/27/2023) Value Reference Range White Blood Count 7.3 4.8-10.8 - X10*3/uL Red Blood Count 4.31 L 4.60-5.80 - X10*6/uL Hemoglobin 12.8 L 14.0-18.0 - g/dl Hematocrit 39.2 L 42.0-52.0 - % Mean Corpuscular Volume 91.0 80.0-98.0 - fL Mean Corpuscular Hemoglobin 29.7 27.0-33.0 - pg Mean Corpuscular HGB Conc 32.7 31.0-36.0 - g/ dl Red Cell Distribution Width 13.4 11.0-16.0 - % Platelet Count 286 160-400 - X10*3/uL Mean Platelet Volume 10.1 9.4-12.4 - fL Neutrophils Percent Auto 61.8 45-73 - % Imm Gran Pct Auto 0.5 H 0.0-0.4 - % Lymphocytes Percent Auto 25.1 20-40 - % Monocytes Percent Auto 7.5 2-11 - % Eosinophils Percent Auto 4.3 H 0-4 - % Basophils Percent Auto 0.8 0-2 - % NRBC Pct Auto 0.0 0.0-0.2 - /100WBC Neutrophils Absolute Auto 4.5 2.0-8.3 - x10* 3/uL Imm Gran Abs Auto 0.04 H 0.00-0.03 - X10*3/uL Lymphocytes Absolute Auto 1.8 1.2-4.9 - X10* 3/uL Monocytes Absolute Auto 0.6 0.1-1.2 - X10*3/ uL Eosinophils Absolute Auto 0.3 0.0-0.4 - X10* 3/uL Basophils Absolute Auto 0.1 0.0-0.2 - X10*3/ uL NRBC Abs Auto 0.000 0.0-0.012 - X10*3/uL * Examination: G eneral Examination: GENERAL APPEARANCE: w ell developed, well nourished, in no acute distress. HEAD: n ormocephalic, atraumatic. EYES: p upils equal, round, reactive to light and accommodation, sclera non-icteric. EARS: n ormal. ORAL CAVITY: m ucosa moist. THROAT: c lear. NECK/THYROID: n janet supple, full range of motion, no cervical lymphadenopathy, no bruits. SKIN: w arm and dry, no suspicious lesions. HEART: r egular rate and rhythm, S1, S2 normal, no murmurs.? LUNGS: c lear to auscultation bilaterally. ABDOMEN: s oft, nontender, nondistended, bowel sounds present, normal, no organomegaly , no masses palpable. RECTAL EXAM: n ormal tone, no external hemorrhoids, no masses palpable, prostate normal, stool guaiac abnormal trace positive. MALE GENITOURINARY: u ncircumcised no penile lesions or discharge no testicular mass testes descended bilaterally. EXTREMITIES: n o clubbing, cyanosis, or edema. NEUROLOGIC: n onfocal, motor strength normal upper and lower extremities, sensory exam intact. Assessment: * Assessment: 1. A nnual physical exam - Z00.00 (Primary) 2 . T ype 2 diabetes mellitus without complication - E11.9 3 . P alpitations - R00.2 4 . G uaiac positive stools - R19.5 5 . E ssential hypertension - I10 6 . P rostatism - N40.0 7 . P ure hypercholesterolemia - E78.00 Plan: * Treatment: 2. T ype 2 diabetes mellitus without complication Continue metFORMIN HCl Tablet, 1000 MG, TAKE 1 TABLET BY MOUTH TWICE DAILY. Notes: stable, will continue current regiment. 3. P alpitations I maging: ECG 30 day event monitor ?Imaging: Electrocardiogram (EKG)* Kim Fried 4 11:28:08 AM EDT > * 4.?Guaiac positive stools?LAB: Occult Blood, Stool, Guaiac?Negative* Value Reference Range O ccult Blood, Stool, Guaiac Neg Notes: will send with 3 cards and recheck.??5.?Essential hypertension? Continue Metoprolol Succinate ER Tablet Extended Release 24 Hour, 100 MG, Take 1 tablet by mouth once daily;?Continue Valsartan-hydroCHLOROthiazide Tablet, 320- 12.5 MG, Take 1 tablet by mouth once daily;?Continue amLODIPine Besylate Tablet, 10 MG, Take 1 tablet by mouth once daily.? Notes: stable, will continue current regiment.??6.?Prostatism? Continue Tamsulosin HCl Capsule, 0.4 MG, TAKE 1 CAPSULE BY MOUTH TWICE DAILY, 30 MINUTES AFTER THE SAME MEALS.?? Notes: stabe, will continue current regiment.??7.?Pure hypercholesterolemia? Notes: doing well, will continue current regiment.?? * Procedure Codes: 9 3000 -ELECTROCARDIOGRAM, [id number] TEST FOR BLOOD, FECES * Preventive Medicine: Counseling: C are goal follow-up plan: C ounseling for abnormal BMI provided?Yes, Zachery zhenge Normal BMI Follow-up Tim thornton encouragement to exercise. Diabetes Care Plan: P atient Lifestyle Goals N eeds to maintain diet control.?Treatment Goals A 1C< 7. B arriers N o specific barriers, doing well. S elf-Managment Plan I ncrease light exercise to 3 times a week for 30 minutes. * Follow Up: 2 Months * * Sign off status: Completed true * Provider: Tim Dejesus MD Date: 0 01/05/2024 Generated for Mandy conti/Claire/Kelton on: 1 08/27/2024 01:16 PM EST History and Physical Notes * HPI (History of Present Illness) Category Sub-Category Detail Notes Category Not es Symptom(s) patient is a 78 yo male here for annual visit with review of recent labs and follow up of chronic issues, at times if sleeping on side will wake up and wakes up with rapid heart beat. Depression Screening PHQ-9 Little inte rest or pleasure in doing things: Not at all Feeling down, depressed, or hopeless: No t at all Trouble falling or staying asleep, or sl eeping too much: Not at all Feeling tired or having little energy: N ot at all Poor appetite or overeating: Not at all Feeling bad about yourself o r that you are a failure, or have let yourself or your family down: Not at all Trouble concentrating on thi ngs, such as reading the newspaper or watching television: Not at all Moving or speaking so slowly that other people could have noticed; or the opposite, being so fidgety or restless that you have been moving around a lot more than usual: Not at all Thoughts that you would be b nellie off or of hurting yourself in some way: Not at all Total Score: 0 Interpretation and Intervention Depression Chery bob Findings: Negative Follow-Up for Depression: : review of PH Q-9 found negative result, no follow-up needed SDOH Questions SDOH Questions In the past year have you been worried about losing housing?: No In the past year have you or any family members you live with been unable to get any of the following when it was really needed? Check all that apply:: None Fall Risk History Have you had any falls with injury i n the past year?: No Have you had two or more falls in the st year?: No Communication Needs Communication Needs Does the patient have a hearing impairment: No Does the patient have a vision impairmen t?: Yes If yes, what is the vision impairment?: Glasses Does the patient have a cognition impair ment?: No Examination Category Sub-Category Detail Notes Category Not es General Examination GENERAL APPEARANCE: well dev eloped, well nourished, in no acute distress HEAD: normocephalic, atrau matic EYES: pupils equal, round, reactive to light and accommodation, sclera non-icteric EARS: normal THROAT: clear NECK/THYROID: neck supple, full ra nge of motion, no cervical lymphadenopathy, no bruits HEART: regular rate and rhy thm, S1, S2 normal, no murmurs LUNGS: clear to auscultatio n bilaterally ABDOMEN: soft, nontender, non distended, bowel sounds present, normal, no organomegaly , no masses palpable NEUROLOGIC: nonfocal, motor stre ngth normal upper and lower extremities, sensory exam intact SKIN: warm and dry, no nhan picious lesions EXTREMITIES: no clubbing, cyanosi s, or edema MALE GENITOURINARY: uncircumcised no pen ile lesions or discharge no testicular mass testes descended bilaterally RECTAL EXAM: normal tone, no exte rnal hemorrhoids, no masses palpable, prostate normal, stool guaiac abnormal trace positive ORAL CAVITY: mucosa moist
--- OUTSIDE RECORDS SUMMARY | 2024-01-16 09:07 | XMS_ITS ---
Author Organization John Dejesus MD Address [address] [place] [phone] Care Team Providers Care Sport Internship Name Role Phone Oleg John Primary Care Provider REASON FOR VISIT ? monitor Encounters Encounter Location Date Provider Diagnosis John Dejesus MD [address] [facility] [address] [place] [phone] 01/16/2024 John Dejesus Heart palpitations R00.2 Assessments Encounter Date Diagnosis (ICD Code) Assessment Notes Treatment Notes Treatment Clinical Notes Section Notes 01/16/2024 Heart palpitations (ICD-10 - R00.2) Plan Of Treatment Pending Test Test Name Order Date ECG holter monitor 48 hour 01/16/2024 Next Appt Details Provider Name:John chauhan, 07/04/2025 10:45:00 AM, [address] [facility], Suite [facility], [place], [place], [phone], Provider Name:John chauhan, 01/16/2026 07:00:00 AM, [address], [address], [place], [place], [phone], Provider Name:John Cain gissel, 01/23/2026 09:30:00 AM, [address], [address], [place], [place], [phone], Progress Notes * Bobby CHAIREZDOB:1945 (78 yo M)Acc No.[id number]:01/16/2024 Patient: Bobby Hubbard :1945 A ge:78 Y S ex:Male Address:[address] [place] [id number] Subjective: * Chief Complaints: * ? monitor * Medical History: * Surgical History: * Hospitalization/Major Diagno stic Procedure: * Medications: Objective: Assessment: * Assessment: 1. H eart palpitations - R00.2 (Primary) Plan: * Treatment: * Procedure Codes: * true * Date: Generated for Mandy conti/Claire/eTjohannysmitting on: 08/27/2024 01:16 PM EST
--- OUTSIDE RECORDS SUMMARY | 2024-03-06 05:00 | XMS_ITS ---
Author Organization John Dejesus MD Address [address] [place] [phone] Care Team Providers Care Data Integration Developer Name Role Phone John Dejesus Primary Care Provider Allergies No Known Allergies Results Component Value Reference Range Notes Glucose, finger stick Reviewed date:03/06/2024 10:03:19 AM Interpretation: Performing Lab: Notes/Report: Value 266 REASON FOR VISIT 2 MO F/U Medications Medication SIG (Take, Route, Frequency, Duration) Notes Start Date End Date Status metFORMIN HCl 1000 MG TAKE 1 TABLET BY M OUTH TWICE DAILY Active Atorvastatin Calcium 40 MG Take 1 tablet by mouth once daily for 90 Active Metoprolol Succinate ER 100 MG Take 1 tablet by mouth once daily Active Valsartan-hydroCHLOROthia zide 320-12.5 MG Take 1 tablet by mouth once daily Active amLODIPine Besylate 10 MG Take 1 tablet by mouth once daily Active Tamsulosin HCl 0.4 MG TAKE 1 CAPSULE BY MOUTH TWICE DAILY, 30 MINUTES AFTER THE SAME MEALS Active Transderm-Scop (1.5 MG) 1 MG/3DAYS 1 patch to skin as needed Transdermal every 3 days for 10 days 01/20/2017 Not-Taking Aspirin 81 MG 1 tablet Orally Once a day Active Vital Signs Blood pressure systolic 122 mm Hg 03/06/20 24 Blood pressure diastolic 60 mm Hg 024 Height 64 in 03/06/2024 Weight 168 lbs 03/06/2024 BMI 28.83 kg/m2 03/06/2024 Encounters Encounter Location Date Provider Diagnosis John Dejesus MD [address] [place] [phone] 03/06/2024 John Dejesus Type 2 diabetes mellitus without complication E11.9 Assessments Encounter Date Diagnosis (ICD Code) Assessment Notes Treatment Notes Treatment Clinical Notes Section Notes 03/06/2024 Type 2 diabetes mellitus without complication (ICD-10 - E11.9) went to [place] this weekend and ate a lot of sweets. will continue current regiment and will continue to monitor Plan Of Treatment Medication Medication Name Sig Start Date Stop Date Notes metFORMIN HCl 1000 MG TAKE 1 TABLET BY MOUTH TWICE DAILY Treatment Notes Assessment Notes Type 2 diabetes mellitus without complic ation went to [place] this weekend and ate a lot of sweets. will continue current regiment and will continue to monitor Next Appt Details Follow Up: 3 Months, Reason: dm Provider Name:John chauhan, 07/04/2025 10:45:00 AM, [address] [place] [address], [address], [phone], Provider Name:John chauhan, 01/16/2026 07:00:00 AM, [address] [place] [address], [phone], Provider Name:John chauhan, 01/23/2026 09:30:00 AM, [address] [place] [address], [phone], Progress Notes * Bobby CHAIREZDOB:1945 (78 yo M)Acc No.[id number]:03/06/2024 Progress Notes Patient: Bobby Hubbard Provider: Tim Dejesus MD :1945 A ge:78 Y S ex:Male Date:03/06/2024 Address:[address] [place] [address], [facility], [facility] Subjective: * Chief Complaints: * 2 MO F/U * HPI: S ymptom(s): patient is a 78 yo male here for 2 month here for follow up of diabetes. * ROS: G eneral/Constitutional: Denies C hills. D enies F atigue. D enies F ever. D enies H eadache. E NT: Patient denies d ecreased sense of smell, any loss of taste, sore throat. D enies S ore throat. R espiratory: Denies C ough. D enies S hortness of breath at rest. D enies S hortness of breath with exertion. G astrointestinal: Denies D iarrhea. D enies N ausea. M usculoskeletal: Patient denies m uscle aches. P eripheral Vascular: Patient denies r ed and blue toes. * Medical History: * Surgical History: * Hospitalization/Major Diagno stic Procedure: * Medications: T akingAspirin 81 MG Tablet Delayed Release 1 tablet Orally Once a dayAtorvastatin Calcium 40 MG Tablet Take 1 tablet by mouth once daily Metoprolol Succinate ER 100 MG Tablet Extended Release 24 Hour Take 1 tablet by mouth once daily Valsartan-hydroCHLOROthiazide 320-12.5 MG Tablet Take 1 tablet by mouth once daily amLODIPine Besylate 10 MG Tablet Take 1 tablet by mouth once daily Tamsulosin HCl 0.4 MG Capsule TAKE 1 CAPSULE BY MOUTH TWICE DAILY, 30 MINUTES AFTER THE SAME MEALS metFORMIN HCl 1000 MG Tablet TAKE 1 TABLET BY MOUTH TWICE DAILY Taking Aspirin 81 MG Tablet Delayed Release 1 tablet Orally Once a dayTaking Atorvastatin Calcium 40 MG Tablet Take 1 tablet by mouth once daily Taking Metoprolol Succinate ER 100 MG Tablet Extended Release 24 Hour Take 1 tablet by mouth once daily Taking Valsartan-hydroCHLOROthiazide 320-12.5 MG Tablet Take 1 tablet by mouth once daily Taking amLODIPine Besylate 10 MG Tablet Take 1 tablet by mouth once daily Taking Tamsulosin HCl 0.4 MG Capsule TAKE 1 CAPSULE BY MOUTH TWICE DAILY, 30 MINUTES AFTER THE SAME MEALS Taking metFORMIN HCl 1000 MG Tablet TAKE [...] Verified] Objective: * Vitals: H t: 64, Wt:168, BMI:28.83, BP:122/60. * Examination: G eneral Examination: GENERAL APPEARANCE: alert, well hydrated, in no distress . HEAD: normocephalic. SKIN: good turgor. HEART: no murmurs, rubs, gallops, regular rate and rhythm. LUNGS: no wheezes, rales, rhonchi, good air movement, clear to auscultation bilaterally. EXTREMITIES: trace edema. Assessment: * Assessment: 1. T ype 2 diabetes mellitus without complication - E11.9 (Primary) Plan: * Treatment: Value Reference Range V alireza 266 * Kmi Fried 4 10:03:17 AM EDT > Notes: went to [place] this weekend and ate a lot of sweets. will continue current regiment and willcontinue to monitor.?? * Procedure Codes: 8 2947 ASSAY, GLUCOSE, BLOOD QUANT, Modifiers: QW * Follow Up: 3 Months (Reason: dm) * * Sign off status: Completed true * Provider: Tim Dejesus MD Date: 0 03/06/2024 Generated for Mandy conti/Claire/eTransmitting on: 08/27/2024 01:15 PM EST History and Physical Notes * HPI (History of Present Illness) Category Sub-Category Detail Notes Category Not es Symptom(s) patient is a 78 yo male here for 2 month here for follow up of diabetes. Examination Category Sub-Category Detail Notes Category Not es General Examination GENERAL APPEARANCE: alert, w ell hydrated, in no distress HEAD: normocephalic HEART: no murmurs, rubs, ga llops, regular rate and rhythm LUNGS: no wheezes, rales, r honchi, good air movement, clear to auscultation bilaterally SKIN: good turgor EXTREMITIES: trace edema
--- OUTSIDE RECORDS SUMMARY | 2024-04-24 06:45 | XMS_ITS ---
Author Organization John Dejesus MD Address [address] [place] [phone] Care Team Providers Care Water Truck Driver Name Role Phone John Dejesus Primary Care Provider REASON FOR VISIT HDF Immunizations Vaccine Route Administration Date Status Comme nts Influenza High Dose IM Intramuscular 04/24/2024 Administer ed Encounters Encounter Location Date Provider Diagnosis John Dejesus MD [address] [facility] [address] [place] [phone] 04/24/2024 John Dejesus Encounter for immunization Z23 Assessments Encounter Date Diagnosis (ICD Code) Assessment Notes Treatment Notes Treatment Clinical Notes Section Notes 04/24/2024 Encounter for immunization (ICD-10 - Z23) Plan Of Treatment Next Appt Details Provider Name:John chauhan, 07/04/2025 10:45:00 AM, [address] [facility], [address] [place] [address], [phone], Provider Name:John chauhan, 01/16/2026 07:00:00 AM, [address], [address], [place], [place], [phone], Provider Name:John Cain ier, 01/23/2026 09:30:00 AM, [address] [facility] [address], [address], [place], [place], [phone], Progress Notes * Bobby CHAIREZDOB:1945 (79 yo M)Acc No.[id number]:04/24/2024 Progress Note Patient: Bobby DEVINE Provider: Tim Dejesus MD :1945 A ge:78 Y S ex:Male Date:04/24/2024 Address:[address] [place], [place] [phone] Subjective: * Chief Complaints: * 1 . HDF. * Medical History: Objective: * Vitals: Assessment: * Assessment: 1. E ncounter for immunization - Z23 (Primary) Plan: * Treatment: * Immunizations: Influenza High Dose : 0.5 mL (Dose No:1) (Route: Intramuscular) given by Kim Fried , Office Staff on Left Deltoid * Procedure Codes: 9 0662 FLU VACC PRSV FREE INC ANTIG, G0008 ADMN FLU VAC NO FEE SCHED SAME DAY * * The named appointment provid er may or may not be the originator of this progress note, and it is not deemed complete until electronically signed by the appointment provider. Sign off status: Pending * Provider: Tim Dejesus MD Date: 0 04/24/2024 Generated for Mandy conti/Claire/Jovismitting on: 08/27/2024 01:16 PM EST
--- OUTSIDE RECORDS SUMMARY | 2024-05-31 03:00 | XMS_ITS ---
Author Organization John Dejesus MD Address [address] [place], [place] [phone] Care Team Providers Care Welder/Installer Name Role Phone John Dejesus Primary Care Provider Results Component Value Reference Range Notes Liver Panel Reviewed date:05/31/2024 05:20:25 PM Interpretation: Performing Lab:[facility], [address] [place] [phone] Notes/Report: Bilirubin Total 0.9 0.0-1.0 mg/dL Bilirubin Direct 0.3 0.0-0.5 mg/dL Aspartate Amino Transferase 16 5-37 U/L Alanine Aminotransferase 15 0-40 U/L Total Protein 6.8 6.5-8.0 g/dL Albumin Level 4.0 3.5-5.0 g/dL Alkaline Phosphatase 68 39-117 U/L Glucose Fasting Reviewed date:05/31/2024 05:20:14 PM Interpretation: Performing Lab:[facility], [address] [place] [phone] Notes/Report: Glucose Fasting 112 60-99 mg/dL A fasting glucose from 100-125 mg/dl is considered impaired (pre-diabetes). Lipid Panel with Reflex Reviewed date:05/31/2024 09:37:16 PM Interpretation: Performing Lab:[facility], [address] [place] [phone] Notes/Report: Triglycerides 72 <150 mg/dL Desirable Triglyceride: less than 150 mg/dL Borderline High Triglyceride 150-199 mg/dL High Triglyceride: 200-499 mg/dL Very High Triglyceride: greater than or equal to 5OO mg/dL Cholesterol 112 <200 mg/dL Desirable Cholesterol: less than 200 mg/dL Borderline High Cholesterol: 200-239 mg/dL High Cholesterol: greater than 239 mg/dL LDL Cholesterol Calculated 56 <100 mg/dL Desirable LDL: less than 100 mg/dL Near Optimal/Above Optimal LDL: 110-129 mg/dL Borderline High LDL: 130-159 mg/dL High LDL: 160-189 mg/dL Very High LDL: greater than or equal to 190 mg/dL HDL Cholesterol 42 >40 mg/dL Desirable HDL: greater than 40 mg/dL Note: This HDL assay may give artificially low results in patients with liver disease. Hemoglobin A1c Reviewed date:05/31/2024 09:21:34 PM Interpretation: Performing Lab:[facility], [address] [place] [phone] Notes/Report: Hemoglobin A1c % 6.5 <6.0 % Hemoglobin A1C Reference Range Adults: 4.8 - 6.0 % Non diabetic: < 6.0 % Goal: < 7.0 % Additional Action Suggested: > 8.0 % Note: Hemoglobin A1c results are invalid for patients with abnormal amounts of HbF. Blood transfusions may impact the HbA1c concentration in the patient sample. Estimated Average Glucose 140 eAG = Estimated average glucose which is %A1C expressed as average glucose, using the formula of the K6C-Grkxxam Average Glucose study (ADAG), Diabetes Care, Vol.31,#8, Mar. 2007 REASON FOR VISIT FASTING LIPIDS Encounters Encounter Location Date Provider Diagnosis John Dejesus MD [address] [place] [address] [address] [place], [place] [phone] 05/31/2024 John Dejesus Type 2 diabetes iam itus without complication E11.9 and Pure hypercholesterolemia E78.00 Assessments Encounter Date Diagnosis (ICD Code) Assessment Notes Treatment Notes Treatment Clinical Notes Section Notes 05/31/2024 Type 2 diabetes iam itus without complication (ICD-10 - E11.9) 05/31/2024 Pure hypercholesterolemia (ICD-10 - E78.00) Plan Of Treatment Next Appt Details Provider Name:John chauhan, 07/04/2025 10:45:00 AM, [address], [address], [place], [place], [phone], Provider Name:John chauhan, 01/16/2026 07:00:00 AM, [address], [address], [place], [place], [phone], Provider Name:John chauhan, 01/23/2026 09:30:00 AM, [address] [place] [address], [address], [place], [place], [phone], Progress Notes * MIHAELA BobbyDOB:1945 (78 yo M)Acc No.[id number]:05/31/2024 Progress Note Patient: Bobby Hubbard Provider: Tim Dejesus MD :1945 A ge:78 Y S ex:Male Date:05/31/2024 Address:[address] [place], [place] [phone] Subjective: * Chief Complaints: * F ASTING LIPIDS * Medical History: * Surgical History: * Hospitalization/Major Diagno stic Procedure: * Medications: Objective: Assessment: * Assessment: 1. T ype 2 diabetes mellitus without complication - E11.9 (Primary) 2 . P ure hypercholesterolemia - E78.00 Plan: * Treatment: 2. P ure hypercholesterolemia L AB: Liver Panel L AB: Glucose Fasting L AB: Lipid Panel with Reflex L AB: Hemoglobin A1c * Procedure Codes: 3 6415 VENIPUNCT, ROUTINE* * * Sign off status: Completed true * Provider: Tim Dejesus MD Date: 1 Generated for Mandy conti/Claire/Jovismitting on: 1 08/27/2024 01:17 PM EST
--- OUTSIDE RECORDS SUMMARY | 2024-06-07 05:15 | XMS_ITS ---
Author Organization John Dejesus MD Address [address] [place] [phone] Care Team Providers Care Jewelry Consultant Name Role Phone John Dejesus Primary Care Provider Allergies No Known Allergies Results Component Value Reference Range Notes TSH reflex Free T4 Reviewed date:06/07/2024 05:24:12 PM Interpretation: Performing Lab:[facility], [address] [place] [phone] Notes/Report: TSH reflex Free T4 1.33 0.32-4.0 uIU/mL REASON FOR VISIT 3 month DM Medications Medication SIG (Take, Route, Frequency, Duration) Notes Start Date End Date Status Valsartan-hydroCHLOROthia zide 320-12.5 MG Take 1 tablet by mouth once daily Active amLODIPine Besylate 10 MG Take 1 tablet by mouth once daily Active Transderm-Scop (1.5 MG) 1 MG/3DAYS 1 patch to skin as needed Transdermal every 3 days for 10 days 01/20/2017 Not-Taking metFORMIN HCl 1000 MG TAKE 1 TABLET BY M OUTH TWICE DAILY Active Metoprolol Succinate ER 100 MG Take 1 tablet by mouth once daily Active Atorvastatin Calcium 40 MG Take 1 tablet by mouth once daily Active Aspirin 81 MG 1 tablet Orally Once a day Active Tamsulosin HCl 0.4 MG TAKE 1 CAPSULE BY MOUTH TWICE DAILY, 30 MINUTES AFTER THE SAME MEALS Active Vital Signs Blood pressure systolic 122 mm Hg 06/07/20 Blood pressure diastolic 56 mm Hg 024 Height 64 in 06/07/2024 Weight 168 lbs 06/07/2024 BMI 28.83 kg/m2 06/07/2024 Encounters Encounter Location Date Provider Diagnosis John Dejesus MD [address] [place] [address] [address] [place], [place] [phone] 06/07/2024 John Dejesus Sensation of feeling cold R68.89 ; Prostatism N40.0 ; Type 2 diabetes mellitus with mild nonproliferative diabetic retinopathy without macular edema, bilateral E11.3293 ; Angina pectoris I20.9 ; Pure hypercholesterolemia E78.00 and Essential hypertension I10 Assessments Encounter Date Diagnosis (ICD Code) Assessment Notes Treatment Notes Treatment Clinical Notes Section Notes 06/07/2024 Sensation of feeling cold (ICD-10 - R68.89) 06/07/2024 Prostatism (ICD-10 - N40.0) need notes from urology this month, RECORD REQUESTED FROM UROLOGY 06/07/2024 Type 2 diabetes iam itus with mild nonproliferative diabetic retinopathy without macular edema, bilateral (ICD-10 - E11.3293) well controlled with good a1c, will continue current regiment 06/07/2024 Angina pectoris (ICD -10 - I20.9) well controlled 06/07/2024 Pure hypercholesterolemia (ICD-10 - E78.00) stable, at goal, will contiue current regiment 06/07/2024 Essential hypertensi on (ICD-10 - I10) stable, will continue current regiment Plan Of Treatment Medication Medication Name Sig Start Date Stop Date Notes Valsartan-hydroCHLOROthiazid e 320-12.5 MG Take 1 tablet by mouth once daily amLODIPine Besylate 10 MG Take 1 tablet by mouth once daily metFORMIN HCl 1000 MG TAKE 1 TABLET BY M OUTH TWICE DAILY Metoprolol Succinate ER 100 MG Take 1 ta blet by mouth once daily Atorvastatin Calcium 40 MG Take 1 tablet by mouth once daily Tamsulosin HCl 0.4 MG TAKE 1 CAPSULE BY MOUTH TWICE DAILY, 30 MINUTES AFTER THE SAME MEALS Treatment Notes Assessment Notes Prostatism need notes from urokassie lopez this month, RECORD REQUESTED FROM UROLOGY Type 2 diabetes mellitus 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, bilateral well controlled with good a1c, will continue current regiment Angina pectoris well controlled Pure hypercholesterolemia stable, at goa l, will contiue current regiment Essential hypertension stable, will cont inue current regiment Next Appt Details Provider Name:John Cain ier, 07/04/2025 10:45:00 AM, [address] [place] [address], Suite [facility], [place], [place], [phone], Provider Name:John Cain ier, 01/16/2026 07:00:00 AM, [address] [place] [address], Suite [facility], [place], [place], [phone], Provider Name:John iyerr, 01/23/2026 09:30:00 AM, [address] [place] [address], Suite [facility], [place], [place], [phone], Progress Notes * Bobby CHAIREZDOB:1945 (78 yo M)Acc No.[id number]:06/07/2024 Progress Notes Patient: Bobby Hubbard Provider: Tim Dejesus MD :1945 A ge:78 Y S ex:Male Date:06/07/2024 Address:[address] [place], [place] [phone] Subjective: * Chief Complaints: * 3 month DM * HPI: S ymptom(s): patient is a 78 yo male her for 3 month follow up visit, complaining of feeling cold all the time./ frequent urination at night. psa was in the 4 range. * ROS: G eneral/Constitutional: Denies C hills. D enies F atigue. D enies F ever. D enies H eadache. E NT: Patient denies d ecreased sense of smell , any loss of taste , sore throat. D enies S ore throat. R espiratory: Denies Demetrio ough. Valentina enrosemarie S hortness of breath at rest. D enies S hortness of breath with exertion. G astrointestinal: Denies Valentina iarrhea. D enies N ausea. M usculoskeletal: Patient denies m uscle aches. P eripheral Vascular: Patient denies r ed and blue toes. * Medical History: * Surgical History: * Hospitalization/Major Diagno stic Procedure: * Medications: T akingAspirin 81 MG Tablet Delayed Release 1 tablet Orally Once a dayAtorvastatin Calcium 40 MG Tablet Take 1 tablet by mouth once daily Valsartan- hydroCHLOROthiazide 320-12.5 MG Tablet Take 1 tablet by mouth once daily amLODIPine Besylate 10 MG Tablet Take 1 tablet by mouth once daily Tamsulosin HCl 0.4 MG Capsule TAKE 1 CAPSULE BY MOUTH TWICE DAILY, 30 MINUTES AFTER THE SAME MEALS metFORMIN HCl 1000 MG Tablet TAKE 1 TABLET BY MOUTH TWICE DAILY Metoprolol Succinate ER 100 MG Tablet Extended Release 24 Hour Take 1 tablet by mouth once daily Taking Aspirin 81 MG Tablet Delayed Release [...] 1 TABLET BY MOUTH TWICE DAILY Taking Metoprolol Succinate ER 100 MG Tablet Extended Release 24 Hour Take 1 tablet by mouth once daily Not-Taking/PRNTransderm-Scop (1.5 MG) 1 MG/3DAYS Patch 72 Hour 1 patch to skin as needed Transdermal every 3 daysMedication List reviewed and reconciled with the patientNot-Taking/PRN Transderm-Scop (1.5 MG) 1 MG/3DAYS Patch 72 Hour 1 patch to skin as needed Transdermal every 3 daysMedication List reviewed and reconciled with the patient * Allergies: N .K.D.A.yes[Allergies Verified] Objective: * Vitals: H t: 64, Wt: 168, BMI:28.83, BP:122/56, Wt-k.2. * P ast Orders: L ab:Glucose Fasting (Order Date - 05/31/2024) (Collection Date - 05/31/2024) Value Reference Range Glucose Fasting 112 H 60-99 - mg/dL L ab:Lipid Panel with Reflex (Order Date - 05/31/2024) (Collection Date - 05/31/2024) Value Reference Range Triglycerides 72 <150 - mg/dL Cholesterol 112 <200 - mg/dL LDL Cholesterol Calculated 56 <100 - mg/dL HDL Cholesterol 42 >40 - mg/dL L ab:Hemoglobin A1c (Order Date - 05/31/2024) (Collection Date - 05/31/2024) Value Reference Range Hemoglobin A1c % 6.5 H <6.0 - % Estimated Average Glucose 140 - mg/dL L ab:Liver Panel (Order Date - 05/31/2024) (Collection Date 05/31/2024) Value Reference Range Bilirubin Total 0.9 0.0-1.0 - mg/dL Bilirubin Direct 0.3 0.0-0.5 - mg/dL Aspartate Amino Transferase 16 5-37 - U/L Alanine Aminotransferase 15 0-40 - U/L Total Protein 6.8 6.5-8.0 - g/dL Albumin Level 4.0 3.5-5.0 - g/dL Alkaline Phosphatase 68 39-117 - U/L * Examination: G eneral Examination: GENERAL APPEARANCE: n ormal. HEAD: a bnormal with a chemical burn on forehead from trying to remove a fiorella keratosis. SKIN: g ood turgor. HEART: n o murmurs, rubs, gallops , regular rate and rhythm. LUNGS: n o wheezes, rales, rhonchi , good air movement , clear to auscultation bilaterally. Assessment: * Assessment: 1. S ensation of feeling cold - R68.89 (Primary) 2 . P rostatism - N40.0 3 . 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 A ngina pectoris - I20.9 5 . P ure hypercholesterolemia - E78.00?6. E ssential hypertension - I10 Plan: * Treatment: 2. P rostatism Continue Tamsulosin HCl Capsule, 0.4 MG, TAKE 1 CAPSULE BY MOUTH TWICE DAILY, 30 MINUTES AFTER THE SAME MEALS. Notes: need notes from urology this month, RECORD REQUESTED FROM [facility] 3. T ype 2 diabetes mellitus with mild nonproliferative diabetic retinopathy without macular edema, bilateral Continue metFORMIN HCl Tablet, 1000 MG, TAKE 1 TABLET BY MOUTH TWICE DAILY. Notes: well controlled with good a1c, will continue current regiment 4. A ngina pectoris Notes: well controlled 5. P ure hypercholesterolemia Continue Atorvastatin Calcium Tablet, 40 MG, Take 1 tablet by mouth once daily. Notes: stable, at goal, will contiue current regiment 6. E ssential hypertension Continue Valsartan-hydroCHLOROthiazide Tablet, 320-12.5 MG, Take 1 tablet by mouth once daily; C ontinue amLODIPine Besylate Tablet, 10 MG, Take 1 tablet by mouth once daily; C ontinue Metoprolol Succinate ER Tablet Extended Release 24 Hour, 100 MG, Take 1 tablet by mouth once daily. ? Notes: stable, will continue current regiment * Procedure Codes: 3 6415 VENIPUNCT, ROUTINE* * * Sign off status: Completed true * Provider: Tim Dejesus MD Date: Generated for Mandy conti/Claire/eTransmitting on: 08/27/2024 01:16 PM EST History and Physical Notes * HPI (History of Present Illness) Category Sub-Category Detail Notes Category Not es Symptom(s) patient is a 78 yo male her for 3 month follow up visit, complaining of feeling cold all the time./ frequent urination at night. psa was in the 4 range Examination Category Sub-Category Detail Notes Category Not es General Examination GENERAL APPEARANCE: normal HEAD: abnormal with a chem ical burn on forehead from trying to remove a fiorella keratosis HEART: no murmurs, rubs, ga llops , regular rate and rhythm LUNGS: no wheezes, rales, r honchi , good air movement , clear to auscultation bilaterally SKIN: good turgor
--- OUTSIDE RECORDS SUMMARY | 2025-01-03 03:00 | XMS_ITS ---
Author Organization John Dejesus MD Address [address] [place], [place] [phone] Care Team Providers Care Gis Developer Name Role Phone John Dejesus Primary Care Provider Results Component Value Reference Range Notes Complete Blood Count Auto Di ff Reviewed date:01/03/2025 12:41:09 PM Interpretation: Performing Lab:[facility], [address] [place] [phone] Notes/Report: White Blood Count 5.9 4.8-10.8 X10*3/uL Red Blood Count 4.11 4.60-5.80 X10*6/uL Hemoglobin 12.4 14.0-18.0 g/dl Hematocrit 36.6 42.0-52.0 % Mean Corpuscular Volume 89.1 80.0-98.0 fL Mean Corpuscular Hemoglobin 30.2 27.0-33.0 pg Mean Corpuscular HGB Conc 33.9 31.0-36.0 g/dl Red Cell Distribution Width 13.2 11.0-16.0 % Platelet Count 276 160-400 X10*3/uL Mean Platelet Volume 10.1 9.4-12.4 fL Neutrophils Percent Auto 60.1 45-73 % Imm Gran Pct Auto 0.3 0.0-0.4 % Lymphocytes Percent Auto 27.9 20-40 % Monocytes Percent Auto 7.9 2-11 % Eosinophils Percent Auto 3.0 0-4 % Basophils Percent Auto 0.8 0-2 % NRBC Pct Auto 0.0 0.0-0.2 /100WBC Neutrophils Absolute Auto 3.6 2.0-8.3 x10*3/u L Imm Gran Abs Auto 0.02 0.00-0.03 X10*3/uL Lymphocytes Absolute Auto 1.7 1.2-4.9 X10*3/u L Monocytes Absolute Auto 0.5 0.1-1.2 X10*3/uL Eosinophils Absolute Auto 0.2 0.0-0.4 X10*3/u L Basophils Absolute Auto 0.1 0.0-0.2 X10*3/uL NRBC Abs Auto 0.000 0.0-0.012 X10*3/uL Comprehensive [place]. Panel Fa st Reviewed date:01/03/2025 04:21:27 PM Interpretation: Performing Lab:[facility], [address] [place] [phone] Notes/Report: Sodium 141 135-145 mmol/L Potassium 3.7 3.3-5.1 mmol/L Chloride 108 96-108 mmol/L Carbon Dioxide 23 22-29 mmol/L Anion Gap 14 12-20 Blood Urea Nitrogen 21 9-16 mg/dL Creatinine 1.14 0.5-1.4 mg/dL Estimated Glomerular Filt Rate > 60 Chronic Kidney Disease: Estimated GFR < 60 mL/min/1.73m2 Severe Kidney Disease: Estimated GFR < 15 mL/min/1.73m2 Glucose Fasting 132 60-99 mg/dL A fasting glucose of 126 mg/dl or greater on more than one occasion is considered diagnostic of diabetes. Calcium 9.2 8.4-10.2 mg/dL Bilirubin Total 0.5 0.0-1.0 mg/dL Aspartate Amino Transferase 21 5-37 U/L Alanine Aminotransferase 13 0-40 U/L Total Protein 6.6 6.5-8.0 g/dL Albumin Level 4.0 3.5-5.0 g/dL Alkaline Phosphatase 65 39-117 U/L Lipid Panel Reviewed date:01/03/2025 01:16:18 PM Interpretation: Performing Lab:[address] [phone] Notes/Report: Triglycerides 76 <150 mg/dL Desirable Triglyceride: less than 150 mg/dL Borderline High Triglyceride 150-199 mg/dL High Triglyceride: 200-499 mg/dL Very High Triglyceride: greater than or equal to 5OO mg/dL Cholesterol 126 <200 mg/dL Desirable Cholesterol: less than 200 mg/dL Borderline High Cholesterol: 200-239 mg/dL High Cholesterol: greater than 239 mg/dL LDL Cholesterol Calculated 73 <100 mg/dL Desirable LDL: less than 100 mg/dL Near Optimal/Above Optimal LDL: 110-129 mg/dL Borderline High LDL: 130-159 mg/dL High LDL: 160-189 mg/dL Very High LDL: greater than or equal to 190 mg/dL HDL Cholesterol 38 >40 mg/dL Desirable HDL: greater than 40 mg/dL Note: This HDL assay may give artificially low results in patients with liver disease. PSA,Total (Free>4and<10) Reviewed date:01/03/2025 01:16:02 PM Interpretation: Performing Lab:[address] [phone] Notes/Report: PSA,Total (Free>4and<10) 2.79 0.00-4.00 ng/mL A Free PSA was not performed: The percentage of Free PSA can be used to enhance the differentiation of prostate cancer from benign prostatic disease in subjects whose PSA levels are between 4.0 and 10.0 ng/mL. For subjects whose PSA levels are below 4.0 or above 10.0 ng/mL, the risk of prostate cancer is determined on the basis of the PSA alone. Therefore the % Free PSA is recommended only for those subjects whose PSA levels are between 4.0 and 10.0 ng/mL. PSA methodology: De Guzman Alinity i Chemiluminescent Microparticle Immunoassay (CMIA) Microalbumin, Random Reviewed date:01/03/2025 12:46:25 PM Interpretation: Performing Lab:[facility] [address] [phone] Notes/Report: Creatinine Urine 207.18 Microalbumin Urine 9.0 Microalbum/Creatinine Ratio Ur 4.3 <30 ug/mg cr Albumin/Creatinine Ratio Reference Ranges: Normal: < 30 ug/mg creatinine Microalbuminuria: 30 - 300 ug/mg creatinine Clinical Albuminuria: > 300 ug/mg creatinine Hemoglobin A1c Reviewed date:01/03/2025 12:34:33 PM Interpretation: Performing Lab:[address] [phone] Notes/Report: Hemoglobin A1c % 6.6 <6.0 % Hemoglobin A1C Reference Range Adults: 4.8 - 6.0 % Non diabetic: < 6.0 % Goal: < 7.0 % Additional Action Suggested: > 8.0 % Note: Hemoglobin A1c results are invalid for patients with abnormal amounts of HbF. Blood transfusions may impact the HbA1c concentration in the patient sample. Estimated Average Glucose 143 eAG = Estimated average glucose which is %A1C expressed as average glucose, using the formula of the [id number] Average Glucose study (ADAG), Diabetes Care, Vol.31,#8, Mar. 2007 UA ClnCatch+Micro w/rflx Cul t Reviewed date:01/03/2025 04:23:06 PM Interpretation: Performing Lab:[address] [phone] Notes/Report: Urine, Clean Catch Color Urine Yellow Appearance Urine Clear PH 6.0 5.0-9.0 Glucose Urine UA Negative Negative mg/dL Urine Blood Negative Negative Specific [place] - Urine 1.025 1.005-1.025 Urine Protein Negative Neg-Trace mg/dL Urine Ketones Trace Negative mg/dL Nitrite Urine Negative Negative Leukocyte Esterase Urine Negative Negative RBC Urine 0-2 0-2 /HPF WBC Urine 0-5 0-5 /HPF Squamous Epithelial Cell Urine 0-2 0-2 /HPF Bacteria Urine None Seen None Seen Hyaline Casts Urine 0-2 0-2 /LPF REASON FOR VISIT FASTING LABS Encounters Encounter Location Date Provider Diagnosis John Dejesus MD [address] [place], [place] [phone] 01/03/2025 John Dejesus Blood tests for rout ine general physical examination Z00.00 ; Type 2 diabetes mellitus without complication E11.9 ; Prostatism N40.0 ; Essential hypertension I10 and Pure hypercholesterolemia E78.00 Assessments Encounter Date Diagnosis (ICD Code) Assessment Notes Treatment Notes Treatment Clinical Notes Section Notes 01/03/[address] ine general physical examination (ICD-10 - Z00.00) 01/03/2025 Type 2 diabetes iam itus without complication (ICD-10 - E11.9) 01/03/2025 Prostatism (ICD-10 - N40.0) 01/03/2025 Essential hypertensi on (ICD-10 - I10) 01/03/2025 Pure hypercholesterolemia (ICD-10 - E78.00) Plan Of Treatment Next Appt Details Provider Name:John chauhan, 07/04/2025 10:45:00 AM, [address] [place] [address], [address] [place] [address], [phone], Provider Name:John iyerr, 01/16/2026 07:00:00 AM, [address] [place] [address], [address], [phone], Provider Name:John Cain ier, 01/23/2026 09:30:00 AM, [address] [place] [address], [address] [place] [address], [phone], Progress Notes * MIHAELA, BobbyDOB:1945 (79 yo M)Acc No.[id number]:01/03/2025 Progress Note Patient: Bobby DEVINE Provider: Tim Dejesus MD :1945 A ge:79 Y S ex:Male Date:01/03/2025 Address:[address] [place], [place] [phone] Subjective: * Chief Complaints: * 1 . FASTING LABS. * Medical History: Objective: * Vitals: Assessment: * Assessment: 1. B lood tests for routine general physical examination - Z00.00 (Primary) 2 .?Type 2 diabetes mellitus without complication - E11.9 3 . P rostatism - N40.0 4 . E ssential hypertension - I10 5 . P ure hypercholesterolemia - E78.00 Plan: * Treatment: 2. T ype 2 diabetes mellitus without complication L AB: Complete Blood Count Auto Diff (Collection Date & Time - 01/03/2025 08:00 AM) L AB: Comprehensive [place]. Panel Fast (Collection Date & Time - 01/03/2025 08:00 AM) L AB: Lipid Panel (Collection Date & Time - 01/03/2025 08:00 AM) L AB: PSA,Total (Free>4and<10) (Collection Date & Time - 01/03/2025 08:00 AM) L AB: Microalbumin, Random (Collection Date & Time - 01/03/2025 08:00 AM) L AB: Hemoglobin A1c (Collection Date & Time - 01/03/2025 08:00 AM) L AB: UA ClnCatch+Micro w/rflx Cult (Collection Date & Time - 01/03/2025 08:00 AM) 3. P rostatism L AB: Complete Blood Count Auto Diff (Collection Date & Time - 01/03/2025 08:00 AM) L AB: Comprehensive [place]. Panel Fast (Collection Date & Time - 01/03/2025 08:00 AM) L AB: Lipid Panel (Collection Date & Time - 01/03/2025 08:00 AM) L AB: PSA,Total (Free>4and<10) (Collection Date & Time - 01/03/2025 08:00 AM) L AB: Microalbumin, Random (Collection Date & Time - 01/03/2025 08:00 AM) L AB: Hemoglobin A1c (Collection Date & Time - 01/03/2025 08:00 AM) L AB: UA ClnCatch+Micro w/rflx Cult (Collection Date & Time - 01/03/2025 08:00 AM) 4. E ssential hypertension L AB: Complete Blood Count Auto Diff (Collection Date & Time - 01/03/2025 08:00 AM) L AB: Comprehensive [place]. Panel Fast (Collection Date & Time - 01/03/2025 08:00 AM) L AB: Lipid Panel (Collection Date & Time - 01/03/2025 08:00 AM) L AB: PSA,Total (Free>4and<10) (Collection Date & Time - 01/03/2025 08:00 AM) L AB: Microalbumin, Random (Collection Date & Time - 01/03/2025 08:00 AM) L AB: Hemoglobin A1c (Collection Date & Time - 01/03/2025 08:00 AM) L AB: UA ClnCatch+Micro w/rflx Cult (Collection Date & Time - 01/03/2025 08:00 AM) 5. P ure hypercholesterolemia L AB: Complete Blood Count Auto Diff (Collection Date & Time - 01/03/2025 08:00 AM) L AB: Comprehensive [place]. Panel Fast (Collection Date & Time - 01/03/2025 08:00 AM) L AB: Lipid Panel (Collection Date & Time - 01/03/2025 08:00 AM) L AB: PSA,Total (Free>4and<10) (Collection Date & Time - 01/03/2025 08:00 AM) L AB: Microalbumin, Random (Collection Date & Time - 01/03/2025 08:00 AM) L AB: Hemoglobin A1c (Collection Date & Time - 01/03/2025 08:00 AM) L AB: UA ClnCatch+Micro w/rflx Cult (Collection Date & Time - 01/03/2025 08:00 AM) * Procedure Codes: 3 6415 VENIPUNCT, ROUTINE* * * The named appointment provid er may or may not be the originator of this progress note, and it is not deemed complete until electronically signed by the appointment provider. Sign off status: Pending * Provider: Tim Dejesus MD Date: 0 01/03/2025 Generated for Mandy conti/Claire/[place] on: 08/27/2024 01:17 PM EST
--- OUTSIDE RECORDS SUMMARY | 2025-01-10 04:30 | XMS_ITS ---
Author Organization John Dejesus MD Address [address] [place], [place] [id number] Care Team Providers Care Valve Technician Name Role Phone Oleg John Primary Care Provider [phone] Allergies No Known Allergies Reason For Referral Reason Shoulder arthritis Diagnosis 1 Shoulder arthritis ( M19.019) Referral Organization John Dejesus MD Referring Provider First Name John Referring Provider Last Name Oleg Referring Provider Speciality Internal M edicine Referred Provider Vijay Medina Referred Provider Specialty Orthopedic S urgery General Notes Heide Rao 0 01/10/2025 09:39:43 AM >info faxedJalen Annette 01/18/2025 10:13:49 AM >was told patient is aware of appt Referral Priority Routine Referral Appointment Date 03/04/2025 REASON FOR VISIT ANNUAL EXAM, c/o left shoulder pain x 2 weeks Medications Medication SIG (Take, Route, Frequency, Duration) Notes Start Date End Date Status Metoprolol Succinate ER 100 MG Take 1 tablet by mouth once daily Active metFORMIN HCl 1000 MG TAKE 1 TABLET BY M OUTH TWICE DAILY Active Aspirin 81 MG 1 tablet Orally Once a day Active Transderm-Scop (1.5 MG) 1 MG/3DAYS 1 [...] DAILY 30 MINUTES AFTER THE SAME MEALS Active Social History Tobacco Use: Social History [...] Problem Status W/U Status Risk Notes Problem Inflammation of joint of shoulder region (886759467) Shoulder arthritis (M19.019) Active confirmed Vital Signs Blood pressure systolic 138 mm Hg 01/11/20 25 Blood pressure diastolic 50 mm Hg 025 Height 64 in 01/10/2025 Weight 168 lbs 01/10/2025 BMI 28.83 kg/m2 01/10/2025 Encounters Encounter Location Date Provider Diagnosis John Dejesus MD [address] [place] [address] [place] [id number] 01/10/2025 John Dejesus Annual physical exam Z00.00 ; Shoulder arthritis M19.019 ; Type 2 diabetes mellitus without complication E11.9 ; Essential hypertension I10 ; Prostatism N40.0 ; Pure hypercholesterolemia E78.00 ; Gastroesophageal reflux disease without esophagitis K21.9 ; Colon cancer screening Z12.11 and Depression screening Z13.31 Assessments Encounter Date Diagnosis (ICD Code) Assessment Notes Treatment Notes Treatment Clinical Notes Section Notes 01/10/2025 Annual physical exam (ICD-10 - Z00.00) labs reviewed and discussed with patient 01/10/2025 Shoulder arthritis (ICD-10 - M19.019) referral to [facility] [place] [facility] 01/10/2025 Type 2 diabetes iam itus without complication (ICD-10 - E11.9) good sugar, will continue current regiment 01/10/2025 Essential hypertensi on (ICD-10 - I10) well controlled, will continue current regiment 01/10/2025 Prostatism (ICD-10 - N40.0) doing better with taking some apple cider vinegar, will continue to monitor 01/10/2025 Pure hypercholesterolemia (ICD-10 - E78.00) stable, will contnue current regiment 01/10/2025 Gastroesophageal ref lux disease without esophagitis (ICD-10 - K21.9) doing well, will conintue current regiment 01/10/2025 Colon cancer screeni ng (ICD-10 - Z12.11) guaiac negative 01/10/2025 Depression screening (ICD-10 - Z13.31) negative screen Plan Of Treatment Medication Medication Name Sig Start Date Stop Date Notes Metoprolol Succinate ER 100 MG Take 1 ta blet by mouth once daily metFORMIN HCl 1000 MG TAKE 1 TABLET BY M OUTH TWICE DAILY Atorvastatin Calcium 40 MG Take 1 tablet by mouth once daily Valsartan-hydroCHLOROthiazid e 320-12.5 MG Take 1 tablet by mouth once daily amLODIPine Besylate 10 MG Take 1 tablet by mouth once daily Tamsulosin HCl 0.4 MG TAKE 1 CAPSULE BY MOUTH TWICE DAILY 30 MINUTES AFTER THE SAME MEALS Treatment Notes Assessment Notes Annual physical exam labs reviewed and d iscussed with patient Shoulder arthritis referral to [facility] [place] [facility] Type 2 diabetes mellitus without complic ation good sugar, will continue current regiment Essential hypertension well controlled, will continue current regiment Prostatism doing better with ta cory some apple cider vinegar, will continue to monitor Pure hypercholesterolemia stable, will c ontnue current regiment Gastroesophageal reflux dise ase without esophagitis doing well, will conintue current regiment Colon cancer screening guaiac negative Depression screening negative screen Referrals Referral Date Details 01/10/2025 01/10/2025, Shoulder arthritis, Vijay Medina Next Appt Details Provider Name:John chauhan, 07/04/2025 10:45:00 AM, [address] [place] [address], [address], [place], [place], [phone], Provider Name:John chauhan, 01/16/2026 07:00:00 AM, [address], [address], [place], [place], [phone], Provider Name:John Cain ier, 01/23/2026 09:30:00 AM, [address], [address], [place], [place], [phone], Progress Notes * Bobby CHAIREZDOB:1945 (79 yo M)Acc No.[id number]:01/10/2025 Progress Notes Patient: Bobby DEVINE Provider: Tim Dejesus MD :1945 A ge:79 Y S ex:Male Date:01/10/2025 Address:[address] [place], [place] [phone] Subjective: * Chief Complaints: * A NNUAL EXAMC/o left shoulder pain x 2 weeks * HPI: D epression Screening: PHQ-9 L [...] oes the patient have a hearing impairment Y es, I f yes, what is the hearing impairment? H teddy of hearing, Hearing Aids, D oes the patient have a vision [...] N one. S ymptom(s): patient is a 79 yo male here for annual visit with review of recent labs and follow up of chronic issues, has shoulder pain for 2 weeks. * ROS: G eneral/Constitutional: Change in appetite d enies. C hills d enies. F ever d enies. O phthalmologic: Blurred vision d enies. D ischarge d enies. P ain d enies. E NT: Decreased hearing d enies. S ore throat d enies.?Swollen glands d enies. E ndocrine: Cold intolerance [...] F requent urination d enies. M usculoskeletal: Painful joints d enies. W eakness d enies. ? S kin: Dry skin d enies. I [...] affeine: yes, frequency:, 1-2 cups per day. Children: no. Community involvements: no. Exercise: yes, PUSH UPS LEG STRETCHES GOLFS 3 TIMES AWEEK IN SUMMER, GOES 2 TIMES IN THE WINTER. Housing: owning. Living with: living with x- girlfriends grandson. Marital status: single. Occupation: retired. Pets: none. Travel outside of the [place]: no. * Medications: T akingAspirin 81 MG Tablet Delayed Release 1 tablet Orally Once a day metFORMIN HCl 1000 MG Tablet TAKE 1 TABLET BY MOUTH TWICE DAILY Metoprolol Succinate ER 100 MG Tablet Extended Release 24 Hour Take 1 tablet by mouth once daily amLODIPine Besylate 10 MG Tablet Take 1 tablet by mouth once daily Valsartan-hydroCHLOROthiazide 320-12.5 MG Tablet Take 1 tablet by mouth once daily Tamsulosin HCl 0.4 MG Capsule TAKE 1 CAPSULE BY MOUTH TWICE DAILY 30 MINUTES AFTER THE SAME MEALS Atorvastatin Calcium 40 MG Tablet Take 1 tablet by mouth once daily Taking Aspirin 81 MG Tablet Delayed Release 1 tablet Orally Once a day Taking metFORMIN HCl 1000 MG Tablet TAKE [...] Capsule TAKE 1 CAPSULE BY MOUTH TWICE DAILY 30 MINUTES AFTER THE SAME MEALS Taking Atorvastatin Calcium 40 MG Tablet Take 1 tablet by mouth once daily Not-Taking/PRNTransderm-Scop (1.5 MG) 1 MG/3DAYS Patch 72 Hour 1 patch to skin as needed Transdermal every 3 days Medication List reviewed and reconciled with the patientNot-Taking/PRN Transderm-Scop (1.5 MG) 1 MG/3DAYS Patch 72 Hour 1 patch to skin as needed Transdermal every 3 days Medication List reviewed and reconciled with the patient * Allergies: N .K.D.A.yes[Allergies Verified] Objective: * Vitals: H t: 64, Wt: 168, BMI:28.83, BP:138/50, Wt-k.2. * P ast Orders: L ab:PSA,Total (Free>4and<10) (Order Date - 01/03/2025) (Collection Date & Time - 01/03/2025 08:00 AM) Value Reference Range PSA,Total (Free>4and<10) 2.79 0.00-4.00 - ng/ mL L ab:Microalbumin, Random (Order Date - 01/03/2025) (Collection Date & Time - 01/03/2025 08:00 AM) Value Reference Range Creatinine Urine 207.18 - mg/dL Microalbumin Urine 9.0 - mg/L Microalbum Creatinine Ratio Ur 4.3 <30 - ug/ mg cr L ab:Hemoglobin A1c (Order Date - 01/03/2025) (Collection Date & Time - 01/03/2025 08:00 AM) Value Reference Range Hemoglobin A1c % 6.6 H <6.0 - % Estimated Average Glucose 143 - mg/dL L ab:Complete Blood Count Auto Diff (Order Date - 01/03/2025) (Collection Date & Time - 01/03/2025 08:00 AM) Value Reference Range White Blood Count 5.9 4.8-10.8 - X10*3/uL Red Blood Count 4.11 L 4.60-5.80 - X10*6/uL Hemoglobin 12.4 L 14.0-18.0 - g/dl Hematocrit 36.6 L 42.0-52.0 - % Mean Corpuscular Volume 89.1 80.0-98.0 - fL Mean Corpuscular Hemoglobin 30.2 27.0-33.0 - pg Mean Corpuscular HGB Conc 33.9 31.0-36.0 - g/ dl Red Cell Distribution Width 13.2 11.0-16.0 - % Platelet Count 276 160-400 - X10*3/uL Mean Platelet Volume 10.1 9.4-12.4 - fL Neutrophils Percent Auto 60.1 45-73 - % Imm Gran Pct Auto 0.3 0.0-0.4 - % Lymphocytes Percent Auto 27.9 20-40 - % Monocytes Percent Auto 7.9 2-11 - % Eosinophils Percent Auto 3.0 0-4 - % Basophils Percent Auto 0.8 0-2 - % NRBC Pct Auto 0.0 0.0-0.2 - /100WBC Neutrophils Absolute Auto 3.6 2.0-8.3 - x10* 3/uL Imm Gran Abs Auto 0.02 0.00-0.03 - X10*3/uL Lymphocytes Absolute Auto 1.7 1.2-4.9 - X10* 3/uL Monocytes Absolute Auto 0.5 0.1-1.2 - X10*3/ uL Eosinophils Absolute Auto 0.2 0.0-0.4 - X10* 3/uL Basophils Absolute Auto 0.1 0.0-0.2 - X10*3/ uL NRBC Abs Auto 0.000 0.0-0.012 - X10*3/uL L ab:Lipid Panel (Order Date - 01/03/2025) (Collection Date & Time - 01/03/2025 08:00 AM) Value Reference Range Triglycerides 76 <150 - mg/dL Cholesterol 126 <200 - mg/dL LDL Cholesterol Calculated 73 <100 - mg/dL HDL Cholesterol 38 L >40 - mg/dL * Examination: G eneral Examination: GENERAL APPEARANCE: [...] no masses palpable, prostate normal, stool guaiac negative. MALE GENITOURINARY: u ncircumcised, no penile lesions or discharge, no testicular mass, testes descended bilaterally. EXTREMITIES: n o clubbing, cyanosis, or edema. NEUROLOGIC: n onfocal, motor strength normal upper and lower extremities, sensory exam intact. FOOT EXAM: . Assessment: * Assessment: 1. A nnual physical exam - Z00.00 (Primary) 2 . S houlder arthritis - M19.019 3 . T ype 2 diabetes mellitus without complication - E11.9 4 . E ssential hypertension - I10 5 . P rostatism - N40.0 6 . Pure hypercholesterolemia - E78.00 7 . G astroesophageal reflux disease without esophagitis - K21.9 8 . C olon cancer screening - Z12.11 9 . D epression screening - Z13.31 Plan: * Treatment: 2. S houlder arthritis Notes: referral to [facility] [place] [place] [facility] Referral To:Vijay Medina Orthopedic Surgery Reason:Shoulder arthritis 3. T ype 2 diabetes mellitus without complication Continue metFORMIN HCl Tablet, 1000 MG, TAKE 1 TABLET BY MOUTH TWICE DAILY. Notes: good sugar, will continue current regiment 4. E ssential hypertension Continue Metoprolol Succinate ER Tablet Extended Release 24 Hour, 100 MG, Take 1 tablet by mouth once daily; C ontinue amLODIPine Besylate Tablet, 10 MG, Take 1 tablet by mouth once daily; C ontinue Valsartan-hydroCHLOROthiazide Tablet, 320-12.5 MG, Take 1 tablet by mouth once daily. ? Notes: well controlled, will continue current regiment 5. P rostatism Continue Tamsulosin HCl Capsule, 0.4 MG, TAKE 1 CAPSULE BY MOUTH TWICE DAILY 30 MINUTES AFTER THE SAME MEALS. Notes: doing better with taking some apple cider vinegar, will continue to monitor 6. P ure hypercholesterolemia Continue Atorvastatin Calcium Tablet, 40 MG, Take 1 tablet by mouth once daily. Notes: stable, will contnue current regiment 7. G astroesophageal reflux disease without esophagitis Notes: doing well, will conintue current regiment 8. C olon cancer screening Notes: guaiac negative 9. D epression screening Notes: negative screen * Procedure Codes: * Preventive Medicine: Diabetes Care Plan: P atient Lifestyle Goals N eeds to maintain diet control.?Treatment Goals A 1C< 7. B arriers N o specific barriers, doing well. E xpected Outcome m aintaining stable blood sugar levels within a target range. * * Sign off status: Completed true * Provider: Tim Dejesus MD Date: 0 01/10/2025 Generated for Mandy conti/Claire/Jovismitting on: 1 08/27/2024 01:15 PM EST History and Physical Notes * HPI (History of Present Illness) Category Sub-Category Detail Notes Category Not es Symptom(s) patient is a 79 yo male here for annual visit with review of recent labs and follow up of chronic issues, has shoulder pain for 2 weeks Depression Screening PHQ-9 Little inte rest or [...] had two or more falls in the year?: No Communication Needs Communication Needs Does the patient have a hearing impairment: Yes If yes, what is the hearing impairment?: Hard of hearing, Hearing Aids Does the patient have a vision impairmen [...] clubbing, cyanosi s, or edema MALE GENITOURINARY: uncircumcised, no pe nile lesions or discharge, no testicular mass, testes descended bilaterally RECTAL EXAM: normal tone, no exte rnal hemorrhoids, no masses palpable, prostate normal, stool guaiac negative ORAL CAVITY: mucosa moist FOOT EXAM: Date: 01/10/2025 normal pinprick . normal pulse. normal light touch. Consultation Request Notes Referral Date Referring Provider Referred Provider Not es 01/10/2025 John Dejesus, Vijay Shoulder a rthritis
--- OUTSIDE RECORDS SUMMARY | 2025-05-14 02:30 | XMS_ITS ---
Author Organization John Dejesus MD Address [address] [place] [phone] Care Team Providers Care Preschool Substitute Teacher Name Role Phone John Dejesus Primary Care Provider [phone] REASON FOR VISIT flu Immunizations Vaccine Route Administration Date Status Comme nts Influenza High Dose IM Intramuscular 05/14/2025 Administer ed Encounters Encounter Location Date Provider Diagnosis John Dejesus MD [address] [place] [phone] 05/14/2025 John Dejesus Encounter for administration of vaccine Z23 Assessments Encounter Date Diagnosis (ICD Code) Assessment Notes Treatment Notes Treatment Clinical Notes Section Notes 05/14/2025 Encounter for administration of vaccine (ICD-10 - Z23) Plan Of Treatment Next Appt Details Provider Name:John chauhan, 07/04/2025 10:45:00 AM, [address] [facility], [address] [place] [address], [phone], Provider Name:John chauhan, 01/16/2026 07:00:00 AM, [address], [address], [place], [place], [phone], Provider Name:John Cain ier, 01/23/2026 09:30:00 AM, [address], [address], [place], [place], [phone], Progress Notes * Bobby CHAIREZDOB:1945 (79 yo M)Acc No.[id number]:05/14/2025 Progress Note Patient: Bobby DEVINE Provider: Tim Dejesus MD :1945 A ge:79 Y S ex:Male Date:05/14/2025 Address:[address] [place], [place] [phone] Subjective: * Chief Complaints: * 1 . Flu. * Medical History: Objective: * Vitals: Assessment: * Assessment: 1. E ncounter for administration of vaccine - Z23 (Primary) Plan: * Treatment: * [...] * Provider: Tim Dejesus MD Date: 0 05/14/2025 Generated for Mandy conti/Claire/Radhaitting on: 08/27/2024 01:17 PM EST
--- OUTSIDE RECORDS SUMMARY | 2025-06-27 02:30 | XMS_ITS ---
Author Organization John Dejesus MD Address [address] [place] [phone] Care Team Providers Care Flatwork Finisher Hand Name Role Phone John Dejesus Primary Care Provider Results Component Value Reference Range Notes Hemoglobin A1c Reviewed date:06/27/2025 12:44:43 PM Interpretation: Performing Lab:[facility], [address] [place] [phone] Notes/Report: Hemoglobin A1c % 6.9 <6.0 % Hemoglobin A1C Reference Range Adults: 4.8 - 6.0 % Non diabetic: < 6.0 % Goal: < 7.0 % Additional Action Suggested: > 8.0 % Note: Hemoglobin A1c results are invalid for patients with abnormal amounts of HbF. Blood transfusions may impact the HbA1c concentration in the patient sample. Estimated Average Glucose 151 eAG = Estimated average glucose which is %A1C expressed as average glucose, using the formula of the N4R-Bhgemxl Average Glucose study (ADAG), Diabetes Care, Vol.31,#8, 2007 REASON FOR VISIT fasting lipids Encounters Encounter Location Date Provider Diagnosis John Dejesus MD [address] [place] [address] [place] [phone] 06/27/2025 John Dejesus Type 2 diabetes iam itus without complication E11.9 and Pure hypercholesterolemia E78.00 Assessments Encounter Date Diagnosis (ICD Code) Assessment Notes Treatment Notes Treatment Clinical Notes Section Notes 06/27/2025 Type 2 diabetes iam itus without complication (ICD-10 - E11.9) 06/27/2025 Pure hypercholesterolemia (ICD-10 - E78.00) Plan Of Treatment Pending Test Test Name Order Date Liver Panel 06/27/2025 Glucose Fasting 06/27/2025 Lipid Panel with Reflex 06/27/2025 Next Appt Details Provider Name:John chauhan, 07/04/2025 10:45:00 AM, [address] [place] [address], [address] [place] [address], [phone], Provider Name:John chauhan, 01/16/2026 07:00:00 AM, [address] [place] [address], [address] [place] [address], [phone], Provider Name:John Cain ier, 01/23/2026 09:30:00 AM, [address] [place] [address], [address], [phone], Progress Notes * MIHAELA BobbyDOB:1945 (79 yo M)Acc No.[id number]:06/27/2025 Progress Note Patient: Bobby DEVINE Provider: Tim Dejesus MD :1945 A ge:79 Y S ex:Male Date:06/27/2025 Address:[address] [place], [place] [phone] Subjective: * Chief Complaints: * 1 . Fasting lipids. * Medical History: Objective: * Vitals: Assessment: * Assessment: 1. T ype 2 diabetes mellitus without complication - E11.9 (Primary) 2 . P ure hypercholesterolemia - E78.00 Plan: * Treatment: 2. P ure hypercholesterolemia L AB: Liver Panel L AB: Glucose Fasting L AB: Lipid Panel with Reflex L AB: Hemoglobin A1c (Collection Date & Time - 06/27/2025 07:30 AM) * Procedure Codes: 3 6415 VENIPUNCT, ROUTINE* * * The named appointment provid er may or may not be the originator of this progress note, and it is not deemed complete until electronically signed by the appointment provider. Sign off status: Pending * Provider: Tim Dejesus MD Date: 08/27/2024 Generated for Mandy conti/Claire/Radhaitting on: 08/27/2024 01:16 PM EST
[2025-06-27 11:49] LABS: Alanine Aminotransferase 19 U/L (0-40); Albumin Level 4.4 g/dL (3.5-5.0); Alkaline Phosphatase 77 U/L (39-117); Aspartate Amino Transferase 22 U/L (5-37); Cholesterol 129 mg/dL (<200); HDL Cholesterol 41 mg/dL (>40); Total Protein 7.1 g/dL (6.5-8.0); Triglycerides 68 mg/dL (<150)
--- OUTSIDE RECORDS SUMMARY | 2025-06-27 13:16 | XMS_ITS | Clinical Summary ---
Author Organization [facility] ity Address [address] [place] [address] Care Team Providers Care Childcare Teacher Name Role Phone Unavailable Primary Care Provider [...] nts (1 - 1-dose 75+ series) 2020 Depression Screening 08/15/2024 COVID-19 Vaccine ( - 2024-2 6 season) 2025 Influenza Vaccine (#1) 2025 HIB Vaccines Aged [...]
--- OUTSIDE RECORDS SUMMARY | 2025-06-27 13:17 | XMS_ITS | Patient Health Record ---
Author Organization [facility] Address [address] [place] [address] Care Team Providers Care Literacy Coordinator Name Role Phone Oleg CHAPARRO, John Primary Care Provider Sushant Prince Unavailable [phone] Reason For Referral No Information Medications Medication [...] Problem Status W/U Status Risk Notes Problem Screening for malignant neoplasm of colon (038661469) Encounter for screening for malignant neoplasm of colon (Z12.11) Active confirmed Problem Screening for malignant neoplasm of rectum (638717790) Encounter for screening for malignant neoplasm of rectum (Z12.12) Active confirmed Problem Long-term current use of antiplatelet drug ([id number]) Long-term use of aspirin therapy (Z79.82) Active confirmed Plan Of Treatment Future Test Test Name Order Date COLONOSCOPY 11/10/2016 Insurance Providers Payer Name Payer Address Payer Phone Subscriber Number Group Number Insured Name Patient Relationship to Insured Coverage Start Date Coverage End Date A[employer] MEDI COMP (REFERRAL REQUIRED) [address] [address] [place] [address] [id number] LORRIE CHAIREZ Self - patient is the insured GUARANTEE [employer] [address] [place] [address] [id number] LORRIE CHAIREZ Self - patient is the insured Medical (General) History Medical History History ICD Code Hyperlipidemia HTN NIDDM Denies CA,CVA,Lung disease,renal disease Negative colonoscopies in and 2006, except for diverticulosis and internal hemorrhoids [place] [facility]
--- OUTSIDE RECORDS SUMMARY | 2025-06-27 13:17 | XMS_ITS | Patient Health Record ---
Author Organization John Dejesus MD Address [address] [place] [phone] Care Team Providers Care Chassis Wirer Name Role Phone John Dejesus Primary Care Provider Allergies No Known Allergies Results Component Value Reference Range Notes Complete Blood Count Auto Di ff Reviewed date:01/03/2025 12:41:09 PM Interpretation: Performing Lab:[facility], [address] [place] [phone] Notes/Report: White Blood Count 5.9 4.8-10.8 X10*3/uL [...] NRBC Abs Auto 0.000 0.0-0.012 X10*3/uL Comprehensive [place]. Panel Fa st Reviewed date:01/03/2025 04:21:27 PM Interpretation: Performing Lab:[facility], [address] [place] [phone] Notes/Report: Sodium 141 135-145 mmol/L Potassium 3.7 [...] Panel Reviewed date:01/03/2025 01:16:18 PM Interpretation: Performing Lab:[address] [phone] Notes/Report: Triglycerides 76 <150 mg/dL Desirable Triglyceride: [...] (Free>4and<10) Reviewed date:01/03/2025 01:16:02 PM Interpretation: Performing Lab:[address] [phone] Notes/Report: PSA,Total (Free>4and<10) 2.79 0.00-4.00 ng/mL A [...] Random Reviewed date:01/03/2025 12:46:25 PM Interpretation: Performing Lab:[address] [place] [phone] Notes/Report: Creatinine Urine 207.18 Microalbumin Urine 9.0 Microalbum/Creatinine Ratio Ur 4.3 <30 ug/mg cr Albumin/Creatinine Ratio Reference Ranges: Normal: < 30 ug/mg creatinine Microalbuminuria: 30 - 300 ug/mg creatinine Clinical Albuminuria: > 300 ug/mg creatinine Hemoglobin A1c Reviewed date:01/03/2025 12:34:33 PM Interpretation: Performing Lab:[address] [phone] Notes/Report: Hemoglobin A1c % 6.6 <6.0 % [...] average glucose, using the formula of the J7F-Bdvhzyo Average Glucose study (ADAG), Diabetes Care, Vol.31,#8, Mar. 2007 UA ClnCatch+Micro w/rflx Cul t Reviewed date:01/03/2025 04:23:06 PM Interpretation: Performing Lab:[address] [phone] Notes/Report: Urine, Clean Catch Color Urine Yellow Appearance Urine Clear PH 6.0 5.0-9.0 Glucose Urine UA Negative Negative mg/dL Urine Blood Negative Negative Specific [place] - Urine 1.025 1.005-1.025 Urine Protein Negative Neg-Trace mg/dL Urine Ketones Trace Negative mg/dL Nitrite Urine Negative Negative Leukocyte Esterase Urine Negative Negative RBC Urine 0-2 0-2 /HPF WBC Urine 0-5 0-5 /HPF Squamous Epithelial Cell Urine 0-2 0-2 /HPF Bacteria Urine None Seen None Seen Hyaline Casts Urine 0-2 0-2 /LPF Hemoglobin A1c Reviewed date:06/27/2025 12:44:43 PM Interpretation: Performing Lab:[address] [phone] Notes/Report: Hemoglobin A1c % 6.9 <6.0 % [...] average glucose, using the formula of the U3M-Oflvtcj Average Glucose study (ADAG), Diabetes Care, Vol.31,#8, Mar. 2007 Adrianna Sy Reviewed date:06/27/2025 12:46:53 PM Interpretation: Performing Lab:[facility], [address] [place] [phone] Notes/Report: Adrianna Sy See Note Specimen held untested for 24 hours; Call to request Chemistry testing. Reason For Referral Reason Shoulder arthritis Diagnosis [...] Referral Priority Routine Referral Appointment Date 03/04/2025 Medications Medication SIG (Take, Route, Frequency, Duration) Notes Start Date End Date Status Metoprolol Succinate ER 100 MG Take 1 tablet by mouth once daily Active metFORMIN HCl 1000 MG TAKE 1 TABLET BY M OUTH TWICE DAILY for 90 Active Aspirin 81 MG 1 tablet Orally Once a day Active Transderm-Scop (1.5 MG) 1 MG/3DAYS 1 patch to skin as needed Transdermal every 3 days for 10 days 01/20/2017 Not-Taking Valsartan-hydroCHLOROthia zide 320-12.5 MG Take 1 tablet by mouth once daily Active amLODIPine Besylate 10 MG Take 1 tablet by mouth once daily Active Atorvastatin Calcium 40 MG Take 1 tablet by mouth once daily Active Tamsulosin HCl 0.4 MG TAKE 1 CAPSULE BY MOUTH TWICE DAILY 30 MINUTES AFTER THE SAME MEALS Active Immunizations Vaccine Route Administration Date Status [...] Administered pt was given the vaccine at [facility] in [place]. PPSV23 (Pnemovax) IM Intramuscular 02/09/2018 Administered Fluarix [...] High Dose IM Intramuscular 04/24/2024 Administer ed Influenza High Dose IM Intramuscular 05/14/2025 Administer ed Social History Tobacco Use: Social [...] Problem Status W/U Status Risk Notes Problem 00720901 Prostatism (N40.0) Active confirmed Problem 716350392 Reflux esophagit is (K21.00) Active confirmed Problem Constipation (94152401) Constipation (K59.00) Active confirmed Problem 8561998 Primary insomnia (F51.01) Active confirmed Problem 512950651 Gastroesophageal reflux disease without esophagitis (K21.9) Active confirmed Problem 72882077 Essential hypert ension (I10) Active confirmed Problem 09465727 Type 2 diabetes mellitus without complication (E11.9) Active confirmed Problem 414378077 Low HDL (under 4 0) (E78.6) Active confirmed Problem 745069282 Mild intermitten t asthma with acute exacerbation (J45.21) Active confirmed Problem 913552963 Cervical disc di sease (M50.90) Active confirmed Problem 80478744 Restless leg (G25.81) Active confirmed Problem 382671844 Angina pectoris (I20.9) Active confirmed Problem 79548552 Sciatica of left side (M54.32) Active confirmed Problem 888726485 Renal cysts, acq uired, bilateral (N28.1) Active confirmed Problem 02497741 Type 2 diabetes mellitus with mild nonproliferative diabetic retinopathy without macular edema, 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) Active confirmed Problem 517791292 Pure hypercholesterolemia (E78.00) Active confirmed Problem Inflammation of joint of shoulder region (581713161) Shoulder arthritis (M19.019) Active confirmed Problem 7427194779238365 Arthritis of le ft hip (M16.12) Active confirmed Vital Signs Blood pressure diastolic 50 mm Hg 01/10/2025 Height 64 in 01/10/2025 Blood pressure systolic 138 mm Hg 01/10/2025 Weight 168 lbs 01/10/2025 BMI 28.83 kg/m2 01/10/2025 Encounters Encounter Location Date Provider Diagnosis John Dejesus MD [address] [place] [phone] 01/03/2025 John Dejesus Blood tests for rout ine general physical examination Z00.00 ; Type 2 diabetes mellitus without complication E11.9 ; Prostatism N40.0 ; Essential hypertension I10 and Pure hypercholesterolemia E78.00 John Dejesus MD [address] [place] [phone] 05/14/2025 John Dejesus Encounter for administration of vaccine Z23 John Dejesus MD [address] [place] [phone] 06/27/2025 John Dejesus Type 2 diabetes iam itus without complication E11.9 and Pure hypercholesterolemia E78.00 John Dejesus MD [address] [place] [phone] 01/10/2025 John Bombardier Annual physical exam Z00.00 ; Shoulder arthritis [...] ine general physical examination (ICD-10 - Z00.00) 05/14/2025 Encounter for administration of vaccine (ICD-10 - Z23) 06/27/2025 Type 2 diabetes iam itus without complication (ICD-10 - E11.9) 01/10/2025 Annual physical exam (ICD-10 - Z00.00) labs reviewed and discussed with patient 01/10/2025 Shoulder arthritis (ICD-10 - M19.019) referral to [facility] 01/03/2025 Type 2 diabetes iam itus without complication (ICD-10 - E11.9) 06/27/2025 Pure hypercholesterolemia (ICD-10 - E78.00) 01/10/2025 Type 2 diabetes iam itus without complication (ICD-10 - E11.9) good sugar, will continue current regiment 01/03/2025 Prostatism (ICD-10 - N40.0) 01/10/2025 Essential hypertensi on (ICD-10 - I10) well controlled, will continue current regiment 01/03/2025 Essential hypertensi on (ICD-10 - I10) 01/10/2025 Prostatism (ICD-10 - N40.0) doing better with taking some apple cider vinegar, will continue to monitor 01/03/2025 Pure hypercholesterolemia (ICD-10 - E78.00) 01/10/2025 Pure hypercholesterolemia (ICD-10 - E78.00) stable, will contnue current regiment 01/10/2025 Gastroesophageal ref lux disease without esophagitis (ICD-10 - K21.9) doing well, will conintue current regiment 01/10/2025 Colon cancer screeni ng (ICD-10 - Z12.11) guaiac negative 01/10/2025 Depression screening (ICD-10 - Z13.31) negative screen Plan Of Treatment Pending Test Test Name Order Date Electrocardiogram (EKG) 08/17/2018 Electrocardiogram (EKG) 08/23/2019 Electrocardiogram (EKG) 07/15/2016 XR GI SERIES 08/02/2017 Diabetic Eye Exam 07/25/2015 Liver Panel 06/27/2025 Glucose Fasting 06/27/2025 Lipid Panel with Reflex 06/27/2025 ECG holter monitor 48 hour 01/16/2024 ECG 30 day event monitor 01/05/2024 US renal BI 05/08/2021 US renal BI 04/17/2021 Future Test Test Name Order Date RENAL US WITH BLADDER 05/05/2021 US renal BI 12/27/2022 Next Appt Details Provider Name:John Cian ier, 07/04/2025 10:45:00 AM, [address] [place] [address], [place] [address], [place], [place], [phone], Provider Name:John Shant Sendyteddy ier, 01/16/2026 07:00:00 AM, [address] [place] [address], [place] [address], [place], [place], [phone], Provider Name:John Cain ier, 01/23/2026 09:30:00 AM, [address] [place] [address], Suite [facility], [place], [place], [phone], Insurance Providers Payer Name Payer Address Payer Phone Subscriber Number Group Number Insured Name Patient Relationship to Insured Coverage Start Date Coverage End Date [facility] are [employer] [address] [address] [place] [address] [id number] Bobby Chapman Self - patient is the insured Medical (General) History Medical History History ICD Code COLONOSCOPY [address] Avila's consult note in 04/2012; colonoscopy w/Dr. Avila 02/10/17 (no further testing needed per Dr. Avila)
[2025-06-27 14:56] LABS: Reflex LDLD? No
== END 2025-06-27 10:47 | disposition home or self-care (01) ==
LOC: HO.LNP 10:46
PROVIDERS: Visit Provider Internal Medicine
DX: E11.9 Type 2 diabetes mellitus without complications (principal); E78.00 Pure hypercholesterolemia, unspecified
CPT/HCPCS: 80061; 80076; 82947; 83036